=== PATIENT | male | born 1935 | race Caucasian/White ===

== ENCOUNTER 2017-10-16 15:35 | Inpatient (IN) ==
[2017-10-16] MEDS ORDERED: Ipratropium/Albuterol Neb 3 ML IH ONE (15:41)
[2017-10-16] MEDS ORDERED: methylPREDNISolone 125 MG/2 ML VIAL IVP ONE (15:49)
--- NOTE | 2017-10-16 15:55 | Emergency Department Note ---
Disposition Clinical Impression: Acute exacerbation of chronic obstructive airways disease Disposition: Admitted As Inpatient Condition: Fair Referrals: Paco Salcido DO [Primary Care Provider] - Forms: ED Satisfaction Letter Time of Disposition: 18:40 General Adult HPI - General Chief complaint: ED Shortness of Breath/Dyspnea Stated complaint: chest pain, ANDREA Source: EMS Mode of arrival: EMS Limitations: no limitations Nursing Notes Reviewed: Yes Vital Signs Reviewed: Yes - History of Present Illness HPI Narrative: Chau, 82 year old male, presents via EMS for dyspnea starting last night. PMH is significant for COPD, has rescue inhaler and on 2L O2, distant NC in 76, no PE/stroke, non-smoker. He recently had a sinusitis/URI he states 2 weeks ago for which he was given a shot of prednisone, he states he has not quite recovered from that. He endorses sweating at onset, no nausea/vomiting, exertional dyspnea but no chest discomfort. Pain Scale: 8 - Related Data Home Medications Medication Instructions Recorded Confirmed metFORMIN [Glucophage] 500 mg PO BIDWM 10/16/15 10/16/15 Albuterol Neb [Proventil Neb] 2.5 mg IH Q6H PRN 10/16/17 10/16/17 Albuterol Sulfate [Ventolin Hfa] 2 puff IH Q4H PRN 10/16/17 10/16/17 Finasteride [Proscar] 5 mg PO QPM 10/16/17 10/16/17 Fluticasone Propionate Nasal 100 mcg NS DAILY PRN 10/16/17 10/16/17 [Flonase] Lisinopril-HCTZ 10-12.5 [Prinzide 1 each PO DAILY 10/16/17 10/16/17 10-12.5] Loratadine [Claritin] 10 mg PO DAILY 10/16/17 10/16/17 Allergies Allergy/AdvReac Type Severity Reaction Status Date / Time tamsulosin [From Flomax] Allergy Hives Verified 10/16/17 18:46 ciprofloxacin [From Cipro] AdvReac Hives Verified 10/16/15 12:44 Penicillins AdvReac Rash Verified 10/16/17 15:50 Constitutional: Denies: fever Cardiovascular: Reports: palpitations, dyspnea on exertion. Denies: chest pain , edema, syncope Respiratory: Reports: dyspnea, sputum production. Denies: cough, hemoptysis, stridor Gastrointestinal: Denies: abdominal pain, nausea, vomiting, diarrhea, constipation, melena Genitourinary: Denies: dysuria Neurological: Denies: headache Psychiatric: Reports: depression. Denies: anxiety Endocrine: Reports: fatigue Hematological/Lymphatic: Denies: easy bleeding Allergic/Immunologic: Denies: facial swelling Past Medical History - Past Medical History Medical history: Reports: COPD, diabetes, hypertension, myocardial infarction - Social History Smoking Status: Never smoker Smokeless Tobacco Status: No Alcohol use: Reports: none Drug use: Reports: none Physical Exam - General Limitations: no limitations General appearance: alert, lethargic - Head Head exam: atraumatic, normocephalic - Eye Eye exam: Present: EOMI - ENT ENT exam: mucous membranes moist - Chest Chest inspection: Present: symmetric chest wall rise. Absent: tenderness - Respiratory Respiratory exam: Present: normal lung sounds bilaterally, respiratory distress - Cardiovascular Cardiovascular exam: Present: tachycardia. Absent: systolic murmur, diastolic murmur, JVD - Abdominal Exam Abdominal exam: Present: soft, Non-Tender - Neurological Exam Neurological exam: Present: alert, oriented X3 - Psychiatric Psychiatric exam: Present: normal affect, normal mood - Skin Skin exam: Present: warm. Absent: cyanosis, diaphoresis Course Course Narrative: Chau, 82M, in labored breathing on arrival, visibly in tripod position/pursed lips though conversant. He is in sinus tachycardia, saturating in low-mid 90s with 2L O2. His lung sounds are bilaterally diminished without crackles or wheeze. He has no lower extremity swelling, he is not diaphoretic, shows no evidence of nausea/vomiting. We are starting him on duoneb breathing treatment, solumedrol 125mg, cxr, ecg, trop, basic chemistries. 1545 Re-eval: ECG shows sinus tachycardia at [address] elevation or depression, no t wave abnormalities. Troponin negative. CXR shows no definitive acute process; no cardiomegaly, no vascular congestion. Patient's tachycardia persists, while this may be in response to his hypoxia followed by beta-agonism from his breathing treatment, we are ordering a d- dimer. If higher than age-adjusted threshold of 810, will proceed with CTA chest (creatinine .91) Re-eval 2: D-dimer elevation 906. CTA negative for pulmonary embolism. We are starting Azithromycin for CAP prophylaxis in setting of COPD exacerbation. Discussed patient with hospitalist who agrees to admit the patient for observation of COPD exacerbation. Patient understands plan and agrees. Vital Signs Temperature 98.1 F 10/16/17 15:37 Pulse Rate 103 10/16/17 15:37 Respiratory Rate 25 10/16/17 15:37 Blood Pressure 118/80 10/16/17 15:37 O2 Sat by Pulse Oximetry 94 10/16/17 15:37 Temperature 98.1 F 10/16/17 15:37 Pulse Rate 103 10/16/17 15:37 Respiratory Rate 25 10/16/17 15:37 Blood Pressure 118/80 10/16/17 15:37 O2 Sat by Pulse Oximetry 95 10/16/17 16:05 Oxygen Delivery Oxygen Delivery Room Air Medical Decision Making - Medical Records Medical records reviewed: Yes I reviewed the patient's medical records. - Lab Data Lab results reviewed: Yes I reviewed the patient's lab results. Result diagrams: 10/16/17 15:42 10/16/17 15:42 Lab Results 10/16/17 10/16/17 10/16/17 Range/Units 15:42 15:42 16:38 WBC 17.3 H (4.3-11.1) K/mcL RBC 5.52 H (4.19-5.50) M/mcL Hgb 16.2 (12.9-16.9) g/dL Hct 49.9 (37.5-50.1) % MCV 90.4 (83.0-100.0) fL MCH 29.3 (28.0-33.3) pg MCHC 32.5 (31.6-35.5) g/dL RDW 14.5 (11.5-14.5) % Plt Count 238 (140-400) K/mcL MPV 9.2 L (9.4-12.4) fL Immature Gran % 0.8 (0-4) % Seg Neutrophils % 93.1 % Lymphocytes % 2.8 % Monocytes % 3.1 % Eosinophils % 0.1 % Basophils % 0.1 % Neutrophils # 16.1 H (1.6-8.9) K/mcL Lymphocytes # 0.5 L (0.6-4.6) K/mcL Monocytes # 0.5 (0.0-1.3) K/mcL Eosinophils # 0.0 (0.0-0.6) K/mcL Basophils # 0.0 (0.0-0.2) K/mcL D-Dimer 906 H (0-500) ng/mLFEU Sodium 133 L (136-145) mEq/L Potassium 4.7 (3.5-5.1) mEq/L Chloride 94 L (98-107) mEq/L Carbon Dioxide 28 (23-29) mEq/L BUN 32 H (8-23) mg/dL Creatinine 0.91 (0.70-1.30) mg/dL Est GFR ( Amer) > 60 (> 60) Est GFR (Non-Af Amer) > 60 (> 60) BUN/Creatinine Ratio 35 H (6-26) Glucose 153 H (70-105) mg/dL Calculated Osmolality 286 (280-300) Calcium 9.6 (8.6-10.3) mg/dL Troponin I < 0.03 (< 0.04) ng/mL Lipase 41 (11-82) Units/L - Radiology Data Radiology results reviewed: Yes I reviewed the patient's radiology results. Chest X-Ray 10/16/17 15:51 IMPRESSION: Stable postinflammatory scarring right lung base. No definite acute pulmonary finding. D/ / Rudolph Vaughn MD / Rudolph Vaughn MD Interpreting Provider: Rudolph Vaughn MD - EKG Data EKG #1 EKG attestation: Yes I reviewed and interpreted this EKG. EKG results narrative: ECG obtained 1539. Sinus tachycardic at 120bpm. No st elevation or depression. No t wave abnormalities.
[2017-10-16 16:03] LABS: Basophils % 0.1 %; Eosinophils % 0.1 %; Hematocrit 49.9 % (37.5-50.1); Hemoglobin 16.2 g/dL (12.9-16.9); Immature Granulocytes % 0.8 % (0-4); Lymphocytes # 0.5 K/mcL (0.6-4.6); Lymphocytes % 2.8 %; Mean Corpuscular HGB Conc 32.5 g/dL (31.6-35.5); Mean Corpuscular Hemoglobin 29.3 pg (28.0-33.3); Mean Corpuscular Volume 90.4 fL (83.0-100.0); Mean Platelet Volume 9.2 fL (9.4-12.4); Monocytes # 0.5 K/mcL (0.0-1.3); Monocytes % 3.1 %; Neutrophils # 16.1 K/mcL (1.6-8.9); Platelet Count 238 K/mcL (140-400); Red Blood Count 5.52 M/mcL (4.19-5.50); Red Cell Distribution Width 14.5 % (11.5-14.5); Segmented Neutrophils % 93.1 %
[2017-10-16 16:30] LABS: BUN/Creatinine Ratio 35 (6-26); Blood Urea Nitrogen 32 mg/dL (8-23); Calcium 9.6 mg/dL (8.6-10.3); Carbon Dioxide 28 mEq/L (23-29); Chloride 94 mEq/L (98-107); Glucose 153 mg/dL (70-105); Osmolality,Calculated 286 (280-300); Potassium 4.7 mEq/L (3.5-5.1); Sodium 133 mEq/L (136-145); Troponin I < 0.03 ng/mL (< 0.04); eGFR For African Americans > 60 (> 60); eGFR For Non-African Americans > 60 (> 60)
--- NOTE | 2017-10-16 16:43 | Emergency Department Note ---
Disposition Clinical Impression: Acute exacerbation of chronic obstructive airways disease Disposition: Admitted As Inpatient Condition: Fair General Adult HPI - General Chief complaint: ED Shortness of Breath/Dyspnea Stated complaint: chest pain, ANDREA Time Seen by Provider: 10/16/17 16:27 Source: EMS Mode of arrival: EMS Limitations: no limitations - History of Present Illness Pain Scale: 8 - Related Data Home Medications Medication Instructions Recorded Confirmed metFORMIN [Glucophage] 1,000 mg PO BIDWM 10/16/15 10/16/17 Albuterol Neb [Proventil Neb] 2.5 mg IH Q6H PRN 10/16/17 10/16/17 Albuterol Sulfate [Ventolin Hfa] 2 puff IH Q4H PRN 10/16/17 10/16/17 Finasteride [Proscar] 5 mg PO QPM 10/16/17 10/16/17 Fluticasone Propionate Nasal 100 mcg NS DAILY PRN 10/16/17 10/16/17 [Flonase] Lisinopril-HCTZ 10-12.5 [Prinzide 1 each PO DAILY 10/16/17 10/16/17 10-12.5] Loratadine [Claritin] 10 mg PO DAILY 10/16/17 10/16/17 Allergies Allergy/AdvReac Type Severity Reaction Status Date / Time tamsulosin [From Flomax] Allergy Hives Verified 10/16/17 18:46 ciprofloxacin [From Cipro] AdvReac Hives Verified 10/16/15 12:44 Penicillins AdvReac Rash Verified 10/16/17 15:50 Constitutional: Denies: fever Cardiovascular: Reports: palpitations, dyspnea on exertion. Denies: chest pain , edema, syncope Respiratory: Reports: dyspnea, sputum production. Denies: cough, hemoptysis, stridor Gastrointestinal: Denies: abdominal pain, nausea, vomiting, diarrhea, constipation, melena Genitourinary: Denies: dysuria Neurological: Denies: headache Psychiatric: Reports: depression. Denies: anxiety Endocrine: Reports: fatigue Hematological/Lymphatic: Denies: easy bleeding Allergic/Immunologic: Denies: facial swelling Past Medical History - Past Medical History Medical history: Reports: COPD, diabetes, hypertension, myocardial infarction - Social History Smoking Status: Never smoker Smokeless Tobacco Status: No Alcohol use: Reports: none Drug use: Reports: none Physical Exam - General Limitations: no limitations General appearance: alert, lethargic Course Vital Signs Temperature 98.1 F 10/16/17 15:37 Pulse Rate 103 10/16/17 15:37 Respiratory Rate 25 10/16/17 15:37 Blood Pressure 118/80 10/16/17 15:37 O2 Sat by Pulse Oximetry 94 10/16/17 15:37 Temperature 97.9 F 10/17/17 03:24 Pulse Rate 108 10/17/17 03:24 Respiratory Rate 14 10/17/17 03:24 Blood Pressure 96/54 10/17/17 03:24 O2 Sat by Pulse Oximetry 94 10/17/17 03:24 Oxygen Delivery Oxygen Delivery Room Air Medical Decision Making - Lab Data Result diagrams: 10/17/17 04:05 10/17/17 04:05 Lab Results 10/16/17 10/16/17 10/16/17 Range/Units 15:42 15:42 16:38 WBC 17.3 H (4.3-11.1) K/mcL RBC 5.52 H (4.19-5.50) M/mcL Hgb 16.2 (12.9-16.9) g/dL Hct 49.9 (37.5-50.1) % MCV 90.4 (83.0-100.0) fL MCH 29.3 (28.0-33.3) pg MCHC 32.5 (31.6-35.5) g/dL RDW 14.5 (11.5-14.5) % Plt Count 238 (140-400) K/mcL MPV 9.2 L (9.4-12.4) fL Immature Gran % 0.8 (0-4) % Seg Neutrophils % 93.1 % Lymphocytes % 2.8 % Monocytes % 3.1 % Eosinophils % 0.1 % Basophils % 0.1 % Neutrophils # 16.1 H (1.6-8.9) K/mcL Lymphocytes # 0.5 L (0.6-4.6) K/mcL Monocytes # 0.5 (0.0-1.3) K/mcL Eosinophils # 0.0 (0.0-0.6) K/mcL Basophils # 0.0 (0.0-0.2) K/mcL D-Dimer 906 H (0-500) ng/mLFEU Sodium 133 L (136-145) mEq/L Potassium 4.7 (3.5-5.1) mEq/L Chloride 94 L (98-107) mEq/L Carbon Dioxide 28 (23-29) mEq/L BUN 32 H (8-23) mg/dL Creatinine 0.91 (0.70-1.30) mg/dL Est GFR ( Amer) > 60 (> 60) Est GFR (Non-Af Amer) > 60 (> 60) BUN/Creatinine Ratio 35 H (6-26) Glucose 153 H (70-105) mg/dL Calculated Osmolality 286 (280-300) Calcium 9.6 (8.6-10.3) mg/dL Troponin I < 0.03 (< 0.04) ng/mL Lipase 41 (11-82) Units/L Attestation Statement - Attestation Attestation: I examined this patient and my medical decision-making was reviewed with the Resident Physician. I agree with the documented findings, disposition and treatment plan as described except to the extent set forth below. [id number] time provided Patient arrives with dyspnea. He is tachypneic and tachycardic at the time of my exam. Chest x-ray, ECG, labs reviewed by me. I have recommended adding a d- dimer to the patient's workup and if it is positive, age-adjusted or above, we will pursue CTA of his chest.
[2017-10-16 16:58] LABS: Lipase 41 Units/L (11-82)
[2017-10-16] MEDS ORDERED: Azithromycin 500 MG in D5% in Water 250 ML IVPB ONE (18:37)
[2017-10-16] MEDS ORDERED: Dextrose Gel 15 GM/37.5 ML TUBE PO PRN ×2 (19:23)
[2017-10-16] MEDS ORDERED: *HR* Dextrose 50 % in Water (Syg) 50 ML SYRINGE IVP PRN (19:23)
[2017-10-16] MEDS ORDERED: D5% in Water 1,000 ML IVC PRN (19:23)
[2017-10-16] MEDS ORDERED: Fluticasone Propionate Nasal 50 MCG/SPRAY BOTTLE NS PRN (19:24)
[2017-10-16] MEDS ORDERED: Naloxone 0.4 MG/ML INJ IVP PRN (19:25)
[2017-10-16] MEDS ORDERED: Acetaminophen 325 MG TABLET PO PRN (19:25)
--- NOTE | 2017-10-16 19:29 | Internal Med History&Physical ---
Date of Encounter: 10/16/17 Time of Encounter: 19:26 Internal Medicine - H&P: HPI Chief complaint: shortness of breath Admitted From: Emergency Dept Plans for Post Hospital Care: Home History of present illness: Mr. Ritchie is a 82 year old male with h/o COPD on 2 L at night, DM, HTN presents with a shortness of breath that became worse last night. He has actually been dealing with respiratory symptoms (URI symptoms) since 2 weeks. Was given a steroids shot for this and put on a course of steroids but no improvement. Denies fever/chills/nausea/vomiting/headache/chest pain/abdominal pain/urinary symptoms/neurological symptoms. Came in and was in tripod position with conversational dyspnea. Was sinus tachy. Sats on 2 L O2 in the 90s saturation kohli. Work up with EKG showed sinus tachy. CXR clear. Had elevated D -dimers and CTA ruled out PE. Was given solu-medrol and azithro and nebs in ED. Past Med Surg Social Fam HX - Past Medical History Medical history: COPD, diabetes, hypertension, myocardial infarction - Social History Smoking Status: Never smoker Smokeless Tobacco Status: No Alcohol use: none Drug use: none Internal Medicine - H&P: Meds metFORMIN [Glucophage] 1,000 mg PO BIDWM 10/16/15 [History] Albuterol Neb [Proventil Neb] 2.5 mg IH Q6H PRN 10/16/17 [History] Albuterol Sulfate [Ventolin Hfa] 2 puff IH Q4H PRN 10/16/17 [History] Finasteride [Proscar] 5 mg PO QPM 10/16/17 [History] Fluticasone Propionate Nasal [Flonase] 100 mcg NS DAILY PRN 10/16/17 [History] Lisinopril-HCTZ 10-12.5 [Prinzide 10-12.5] 1 each PO DAILY 10/16/17 [History] Loratadine [Claritin] 10 mg PO DAILY 10/16/17 [History] 3 Allergy/AdvReac Type Severity Reaction Status Date / Time tamsulosin [From Flomax] Allergy Hives Verified 10/16/17 18:46 ciprofloxacin [From Cipro] AdvReac Hives Verified 10/16/15 12:44 Penicillins AdvReac Rash Verified 10/16/17 15:50 All Systems PM: A 10-system review of systems was performed and is negative for pertinent findings except as documented above in the HPI. Review of systems: All systems reviewed are negative except as mentioned above. - Constitutional Vitals: Temp Pulse Resp BP Pulse Ox 98.1 F 103 25 118/80 95 10/16/17 15:37 10/16/17 15:37 10/16/17 15:37 10/16/17 15:37 10/16/17 16:05 Exam: GEN: NAD HEENT: AT, NC, No cyanosis, oral mucosa is moist, No JVD Lymphatics: No lymphadenoapthy Eyes: Extrocular muscles intact, anicteric CVS:RRR. S1, S2, No m/r/g RESP: Expiratory wheezes posteriorly ABD: Soft, NT, ND, +BS EXT: No edema, No rashes, 2+ DP NEURO: Nonfocal, CN II-XII intact, No focal motor or sensory deficits Psych: Cooperative, Not anxious or depressed Internal Med - H&P Results - Labs CBC & Chem 7: 10/16/17 15:42 10/16/17 15:42 Labs: Short CBC 10/16/17 Range/Units 15:42 WBC 17.3 H (4.3-11.1) K/mcL Hgb 16.2 (12.9-16.9) g/dL Hct 49.9 (37.5-50.1) % Plt Count 238 (140-400) K/mcL Neutrophils # 16.1 H (1.6-8.9) K/mcL BMP 10/16/17 15:42 Sodium 133 L Potassium 4.7 Chloride 94 L Carbon Dioxide 28 BUN 32 H Creatinine 0.91 Glucose 153 H Calcium 9.6 Cardiac Enzymes 10/16/17 Range/Units 15:42 Troponin I < 0.03 (< 0.04) ng/mL - Impressions ITS Impressions Chest X-Ray 10/16/17 15:51 IMPRESSION: Stable postinflammatory scarring right lung base. No definite acute pulmonary finding. D/ / Rudolph Vaughn MD / Rudolph Vaughn MD Interpreting Provider: Rudolph Vaughn MD Chest CTA 10/16/17 17:04 IMPRESSION: 1. No evidence of pulmonary embolic disease. 2. No acute pulmonary findings. 3. Atherosclerotic calcification in the aorta and coronary circulation. 4. Hepatic steatosis. 1.7 cm left hepatic lesion, grossly stable. No follow-up imaging indicated. D/ / Jenaro Fleming MD / Jenaro Fleming MD Interpreting Provider: Jenaro Fleming MD - Assessment and plan (1) Acute exacerbation of chronic obstructive airways disease Current Visit: Yes Status: Acute Assessment and plan: Will continue IV solu-medrol. Nebs. O2 support. Zithromax for its anti- inflammatory effects. Resp panel. (2) Elevated d-dimer Current Visit: Yes Status: Acute Assessment and plan: PE ruled out. check LE dopplers. (3) Diabetes mellitus Current Visit: Yes Status: Acute Assessment and plan: Will use insulin sliding scale. [employer]uCheks Qualifiers: Diabetes mellitus type: type 2 Diabetes mellitus skilled nursing insulin use: without termite control service representative use Diabetes mellitus complication status: without complication Qualified Code(s): E11.9 - Type 2 diabetes mellitus without complications (4) Hypertension Current Visit: Yes Status: Acute Assessment and plan: Resume home anti-hypertensives Qualifiers: Hypertension type: essential hypertension Qualified Code(s): I10 - Essential (primary) hypertension (5) DVT prophylaxis Current Visit: Yes Status: Acute Assessment and plan: heparin SQ - Time Spent With Patient Total time spent is greater than 50% in coordination of care (as documented) at patient's floor/unit and/or counseling patient:
[2017-10-16] MEDS ORDERED: Azithromycin 500 MG in D5% in Water 250 ML IVPB SCH (20:00)
[2017-10-16] MEDS: Insulin LISPRO 300 UNITS/3 ML VIAL SQ SCH (22:29)
[2017-10-16] MEDS: *HR* Heparin 5,000 UNIT/ML VIAL SQ SCH (22:29)
[2017-10-16] MEDS: methylPREDNISolone 125 MG/2 ML VIAL IVP SCH (22:30)
[2017-10-16] MEDS: Ipratropium/Albuterol Neb 3 ML IH SCH (22:55)
[2017-10-17] MEDS: Ipratropium/Albuterol Neb 3 ML IH SCH ×4 (03:23→22:16)
[2017-10-17 04:44] LABS: Basophils % 0.1 %; Hematocrit 42.5 % (37.5-50.1); Immature Granulocytes % 0.9 % (0-4); Lymphocytes # 0.3 K/mcL (0.6-4.6); Lymphocytes % 3.9 %; Mean Corpuscular HGB Conc 32.5 g/dL (31.6-35.5); Mean Corpuscular Hemoglobin 29.3 pg (28.0-33.3); Mean Corpuscular Volume 90.2 fL (83.0-100.0); Mean Platelet Volume 9.3 fL (9.4-12.4); Monocytes # 0.1 K/mcL (0.0-1.3); Monocytes % 0.6 %; Platelet Count 198 K/mcL (140-400); Red Blood Count 4.71 M/mcL (4.19-5.50); Red Cell Distribution Width 14.2 % (11.5-14.5); Segmented Neutrophils % 94.5 %
[2017-10-17 04:52] LABS: Hemoglobin 13.8 g/dL (12.9-16.9)
[2017-10-17 05:05] LABS: BUN/Creatinine Ratio 36 (6-26); Blood Urea Nitrogen 37 mg/dL (8-23); Calcium 8.8 mg/dL (8.6-10.3); Carbon Dioxide 23 mEq/L (23-29); Chloride 96 mEq/L (98-107); Glucose 372 mg/dL (70-105); Osmolality,Calculated 296 (280-300); Potassium 4.9 mEq/L (3.5-5.1); Sodium 131 mEq/L (136-145); eGFR For African Americans > 60 (> 60); eGFR For Non-African Americans > 60 (> 60)
[2017-10-17] MEDS: *HR* Heparin 5,000 UNIT/ML VIAL SQ SCH ×3 (06:25→20:35)
[2017-10-17] MEDS: methylPREDNISolone 125 MG/2 ML VIAL IVP SCH ×2 (07:28→17:11)
[2017-10-17] MEDS: Loratadine 10 MG TABLET PO SCH (07:28)
[2017-10-17] MEDS: Insulin LISPRO 300 UNITS/3 ML VIAL SQ SCH ×4 (08:17→17:13)
--- NOTE | 2017-10-17 15:21 | Internal Med Progress Note ---
Date of Encounter: 10/17/17 Time of Encounter: 15:19 - Assessment and plan (1) Acute exacerbation of chronic obstructive airways disease Current Visit: Yes Status: Acute Assessment and plan: continue IV solu-medrol, Nebs, O2 support. Zithromax for its anti-inflammatory effects. Resp panel ordered. (2) Diabetes mellitus Current Visit: Yes Status: Acute Assessment and plan: Hold metformin and use insulin sliding scale with [employer]uCheks Qualifiers: Diabetes mellitus type: type 2 Diabetes mellitus mcfp insulin use: without mcfp use Diabetes mellitus complication status: without complication Qualified Code(s): E11.9 - Type 2 diabetes mellitus without complications (3) Hypertension Current Visit: Yes Status: Acute Assessment and plan: Resume home medications, stable Qualifiers: Hypertension type: essential hypertension Qualified Code(s): I10 - Essential (primary) hypertension (4) DVT prophylaxis Current Visit: Yes Status: Acute Assessment and plan: heparin subcutaneous (5) Elevated d-dimer Current Visit: Yes Status: Acute Assessment and plan: PE ruled out on CTA, LE dopplers with no DVT. (6) Liver lesion, left lobe Current Visit: Yes Status: Acute Assessment and plan: Incidentally 1.7 cm left hepatic lesion grossly stable found on CTA of the chest. Follow LFTs Also positive for hepatic steatosis - Time Spent With Patient Total time spent is greater than 50% in coordination of care (as documented) at patient's floor/unit and/or counseling patient: - Subjective Interval history: Patient sitting up in the bed on oxygen at 3 L nasal cannula. He is a little dyspneic on exertion of speech. He feels his breathing is much better since he came in. Discussed findings of left hepatic liver lesion. Patient has no recollection of ever being diagnosed with any liver problems or concerns. He does have a history of alpha-1 liver disease in his family with a sister and other relatives diagnosed with that in the past. Family members at the bedside and discussed plan of care and they neither one have any questions. Denies chest pain, fevers, chills, abdominal pain, headache, or dizziness. Positive for some sweats. Also reports cough for some yellowish sputum that has been ongoing for many weeks. He has been treated for bronchitis and sinusitis as an outpatient over the last several months. - Constitutional Vitals: Temp Pulse Resp BP Pulse Ox 97.3 F L 117 16 135/61 93 04/07/18 11:43 10/17/17 11:43 10/17/17 11:43 10/17/17 11:43 10/17/17 11:43 General appearance: Present: cooperative, mild distress, A&O X 3, pleasant, obese, answers questions appropriately - Head Head exam: Present: atraumatic, normocephalic - Eye Eye exam: Present: PERRL, conjuntiva pink, sclera anicteric Pupils: Present: PERRL - Neck Neck exam general surgery: Present: supple, trachea midline. Absent: lymphadenopathy - Respiratory Respiratory exam: Present: decreased breath sounds, prolonged expiratory phase, wheezes. Absent: accessory muscle use, rales, rhonchi - Cardiovascular Cardiovascular exam: Present: RRR, +S1, +S2. Absent: diastolic murmur, gallop, rubs, systolic murmur - GI/Abdominal GI/Abdominal exam: Present: normal bowel sounds, soft, no peritoneal signs. Absent: distended, tenderness - Extremities Exam Extremities exam: Present: warm, radial pulses palpable and symmetrical. Absent : calf tenderness, cyanotic, pedal edema - Neurological Exam Neurological exam: Present: alert, CN II-XII intact, normal gait, oriented X3, no focal deficits. Absent: pronater drift, facial droop, speech deficit - Skin Skin exam: Present: dry, intact, normal color, warm Internal Medicine: Result - Labs CBC & Chem 7: 10/17/17 04:05 10/17/17 04:05 Labs: Short CBC 10/17/17 Range/Units 04:05 WBC 8.5 D (4.3-11.1) K/mcL Hgb 13.8 D (12.9-16.9) g/dL Hct 42.5 (37.5-50.1) % Plt Count 198 (140-400) K/mcL Neutrophils # 8.0 (1.6-8.9) K/mcL BMP 10/17/17 04:05 Sodium 131 L Potassium 4.9 Chloride 96 L Carbon Dioxide 23 BUN 37 H Creatinine 1.02 Glucose 372 H Calcium 8.8 - ABG Interpretation ABG results: PT/INR, D-dimer D-Dimer 906 ng/mLFEU (0-500) H 10/16/17 16:38 Consult Discharge Plan - Plan Referrals: Paco Salcido DO [Primary Care Provider] -
[2017-10-17] MEDS ORDERED: Simethicone 80 MG TAB.CHEW PO PRN (16:56)
[2017-10-17] MEDS: Azithromycin 500 MG in D5% in Water 250 ML IVPB SCH (17:12)
[2017-10-17] MEDS: Finasteride 5 MG TABLET PO SCH (17:12)
[2017-10-17 18:40] LABS: Adenovirus Not Detected (Not Detect); Coronavirus 229E Not Detected (Not Detect); Coronavirus HKU1 Not Detected (Not Detect); Coronavirus NL63 Not Detected (Not Detect); Coronavirus OC43 Not Detected (Not Detect); Human Metapneumovirus Not Detected (Not Detect); Human Rhinovirus/Enterovirus Not Detected (Not Detect); Influenza A Subtype 2009 H1 Not Detected (Not Detect)
[2017-10-17 18:41] LABS: Bordetella Pertussis Not Detected (Not Detect); Chlamydophila pneumoniae Not Detected (Not Detect); Influenza A Untypeable Not Detected (Not Detect); Influenza B Not Detected (Not Detect); Mycoplasma pneumoniae Not Detected (Not Detect); Parainfluenza Virus 1 Not Detected (Not Detect); Parainfluenza Virus 2 Not Detected (Not Detect); Parainfluenza Virus 3 Not Detected (Not Detect); Parainfluenza Virus 4 Not Detected (Not Detect); Respiratory Syncytial Virus Not Detected (Not Detect)
[2017-10-17] MEDS ORDERED: Mag Hydrox/Al Hydrox/Simeth 30 ML UDC PO PRN (20:33)
[2017-10-18] MEDS: methylPREDNISolone 125 MG/2 ML VIAL IVP SCH ×3 (00:15→17:00)
[2017-10-18] MEDS: Ipratropium/Albuterol Neb 3 ML IH SCH (03:21)
[2017-10-18 05:06] LABS: Hematocrit 42.1 % (37.5-50.1); Hemoglobin 13.9 g/dL (12.9-16.9); Mean Corpuscular Hemoglobin 29.3 pg (28.0-33.3); Mean Corpuscular Volume 88.6 fL (83.0-100.0); Mean Platelet Volume 9.8 fL (9.4-12.4); Platelet Count 246 K/mcL (140-400); Red Blood Count 4.75 M/mcL (4.19-5.50); Red Cell Distribution Width 14.6 % (11.5-14.5)
[2017-10-18 05:13] LABS: Alanine Aminotransferase 64 Units/L (7-52); Albumin/Globulin Ratio 1.5 (1.1-2.2); Alkaline Phosphatase 63 Units/L (34-104); Aspartate Amino Transferase 38 Units/L (13-39); BUN/Creatinine Ratio 53 (6-26); Bilirubin,Direct 0.1 mg/dL (0.0-0.2); Bilirubin,Indirect 0.4 mg/dL (0.0-1.2); Bilirubin,Total 0.5 mg/dL (0.3-1.0); Blood Urea Nitrogen 50 mg/dL (8-23); Calcium 8.2 mg/dL (8.6-10.3); Carbon Dioxide 19 mEq/L (23-29); Chloride 96 mEq/L (98-107); Globulin 2.6 g/dL (2.4-3.5); Glucose 429 mg/dL (70-105); Osmolality,Calculated 298 (280-300); Potassium 4.2 mEq/L (3.5-5.1); Sodium 128 mEq/L (136-145); Total Protein 6.6 g/dL (6.4-8.9); eGFR For African Americans > 60 (> 60); eGFR For Non-African Americans > 60 (> 60)
[2017-10-18] MEDS: *HR* Heparin 5,000 UNIT/ML VIAL SQ SCH ×3 (05:35→22:45)
[2017-10-18] MEDS ORDERED: *HR* Dextrose 50 % in Water (Syg) 50 ML SYRINGE IVP PRN ×2 (07:44→07:48)
[2017-10-18] MEDS ORDERED: D5% in Water 1,000 ML IVC PRN ×2 (07:44→07:48)
[2017-10-18] MEDS ORDERED: Dextrose Gel 15 GM/37.5 ML TUBE PO PRN ×2 (07:48)
[2017-10-18] MEDS: Loratadine 10 MG TABLET PO SCH (08:15)
[2017-10-18] MEDS: Insulin LISPRO 300 UNITS/3 ML VIAL SQ SCH ×4 (08:16→17:00)
[2017-10-18] MEDS: amLODIPine 5 MG TABLET PO SCH (09:04)
[2017-10-18] MEDS: Insulin DETEMIR 100 UNIT/ML X5UNITS SQ SCH ×2 (09:05→21:37)
[2017-10-18] MEDS: Levalbuterol Neb 1.25 MG/3 ML IH SCH ×3 (09:57→21:45)
--- NOTE | 2017-10-18 12:17 | Internal Med Progress Note ---
Date of Encounter: 10/18/17 Time of Encounter: 12:13 - Assessment and plan (1) Acute exacerbation of chronic obstructive airways disease Current Visit: Yes Status: Acute Assessment and plan: continue IV solu-medrol, change to xopenex nebulizers, O2 support. Zithromax for its anti-inflammatory effects. Resp panel negative. (2) Diabetes mellitus Current Visit: Yes Status: Acute Assessment and plan: Hold metformin increase insulin sliding scale with AccuCheks add longacting insulin Qualifiers: Diabetes mellitus type: type 2 Diabetes mellitus fci insulin use: without intermediate teacher use Diabetes mellitus complication status: without complication Qualified Code(s): E11.9 - Type 2 diabetes mellitus without complications (3) Hypertension Current Visit: Yes Status: Acute Assessment and plan: stable blood pressure stopped HCTZ/lisinopril secondary to renal function, changed to norvasc Qualifiers: Hypertension type: essential hypertension Qualified Code(s): I10 - Essential (primary) hypertension (4) DVT prophylaxis Current Visit: Yes Status: Acute Assessment and plan: heparin subcu (5) Elevated d-dimer Current Visit: Yes Status: Acute Assessment and plan: No pulmonary embolism on CTA, LE dopplers with no DVT. (6) Liver lesion, left lobe Current Visit: Yes Status: Acute Assessment and plan: Incidentally 1.7 cm left hepatic lesion grossly stable found on CTA of the chest. Follow LFTs Also positive for hepatic steatosis GI consult in am Family concerned regarding familial liver disorder (7) Leukocytosis Current Visit: Yes Status: Acute Assessment and plan: Likely secondary to steroids Qualifiers: Leukocytosis type: other Qualified Code(s): D72.828 - Other elevated white blood cell count - Time Spent With Patient Total time spent is greater than 50% in coordination of care (as documented) at patient's floor/unit and/or counseling patient: - Subjective Interval history: Patient sitting up in the bed on oxygen at 3 L nasal cannula. He is a little bit tachycardic after his respiratory treatments so discussed changing his neck utilize her medication. Also discuss findings of his lab work. Blood sugars are elevated likely secondary to the steroids and we have added a long-acting insulin to his regime as well as increased his sliding scale and he is in agreement with that plan. Explained BUN is elevated 7 adjusted his diuretics. He has noticed complaints of chest pain, fevers, chills, abdominal pain or headache. He is slightly constipated and has been sweaty at times. Family is at the bedside and all their questions were answered. - Constitutional Vitals: Temp Pulse Resp BP Pulse Ox 97.4 F L 118 18 116/66 97 10/18/17 12:01 10/18/17 12:01 10/18/17 12:01 10/18/17 12:01 10/18/17 12:01 General appearance: Present: cooperative, mild distress, A&O X 3, pleasant, obese, answers questions appropriately - Head Head exam: Present: atraumatic, normocephalic - Eye Eye exam: Present: PERRL, conjuntiva pink, sclera anicteric Pupils: Present: PERRL - Neck Neck exam general surgery: Present: supple, trachea midline. Absent: lymphadenopathy - Respiratory Respiratory exam: Present: decreased breath sounds, prolonged expiratory phase, wheezes. Absent: accessory muscle use, rales, rhonchi - Cardiovascular Cardiovascular exam: Present: +S1, +S2, tachycardia. Absent: diastolic murmur, gallop, rubs, systolic murmur - GI/Abdominal GI/Abdominal exam: Present: firm, normal bowel sounds, no peritoneal signs. Absent: distended, guarding, tenderness - Extremities Exam Extremities exam: Present: warm, radial pulses palpable and symmetrical. Absent : calf tenderness, cyanotic, pedal edema - Neurological Exam Neurological exam: Present: alert, CN II-XII intact, oriented X3, no focal deficits. Absent: pronater drift, facial droop, speech deficit - Skin Skin exam: Present: diaphoretic, intact, normal color, warm Internal Medicine: Result - Labs CBC & Chem 7: 10/18/17 04:31 10/18/17 04:31 Labs: Short CBC 10/18/17 Range/Units 04:31 WBC 22.8 H D (4.3-11.1) K/mcL Hgb 13.9 (12.9-16.9) g/dL Hct 42.1 (37.5-50.1) % Plt Count 246 (140-400) K/mcL BMP 10/18/17 04:31 Sodium 128 L Potassium 4.2 Chloride 96 L Carbon Dioxide 19 L BUN 50 H Creatinine 0.95 Glucose 429 H Calcium 8.2 L Liver Function 10/18/17 Range/Units 04:31 Total Bilirubin 0.5 (0.3-1.0) mg/dL Direct Bilirubin 0.1 (0.0-0.2) mg/dL AST 38 (13-39) Units/L ALT 64 H (7-52) Units/L Alkaline Phosphatase 63 (34-104) Units/L Albumin 4.0 (3.5-5.7) g/dL - ABG Interpretation ABG results: PT/INR, D-dimer D-Dimer 906 ng/mLFEU (0-500) H 10/16/17 16:38 Consult Discharge Plan - Plan Referrals: Paco Salcido DO [Primary Care Provider] -
[2017-10-18] MEDS: Finasteride 5 MG TABLET PO SCH (17:01)
[2017-10-18] MEDS: Azithromycin 500 MG in D5% in Water 250 ML IVPB SCH (17:01)
[2017-10-18] MEDS ORDERED: Insulin LISPRO 300 UNITS/3 ML VIAL SQ SCH (21:00)
[2017-10-19 01:49] LABS: BUN/Creatinine Ratio 60 (6-26); Blood Urea Nitrogen 53 mg/dL (8-23); Calcium 8.6 mg/dL (8.6-10.3); Carbon Dioxide 25 mEq/L (23-29); Chloride 94 mEq/L (98-107); Glucose 360 mg/dL (70-105); Osmolality,Calculated 301 (280-300); Potassium 4.1 mEq/L (3.5-5.1); Sodium 131 mEq/L (136-145); eGFR For African Americans > 60 (> 60); eGFR For Non-African Americans > 60 (> 60)
[2017-10-19] MEDS: Levalbuterol Neb 1.25 MG/3 ML IH SCH ×2 (04:02→09:40)
[2017-10-19 04:18] LABS: Hemoglobin 13.1 g/dL (12.9-16.9); Mean Corpuscular HGB Conc 32.8 g/dL (31.6-35.5); Mean Corpuscular Volume 88.5 fL (83.0-100.0); Mean Platelet Volume 10.1 fL (9.4-12.4); Platelet Count 234 K/mcL (140-400); Red Blood Count 4.52 M/mcL (4.19-5.50); Red Cell Distribution Width 14.5 % (11.5-14.5)
[2017-10-19] MEDS: *HR* Heparin 5,000 UNIT/ML VIAL SQ SCH ×2 (05:49→13:39)
[2017-10-19] MEDS: Loratadine 10 MG TABLET PO SCH (07:59)
[2017-10-19] MEDS: methylPREDNISolone 125 MG/2 ML VIAL IVP SCH ×2 (07:59)
[2017-10-19] MEDS: amLODIPine 5 MG TABLET PO SCH (07:59)
[2017-10-19] MEDS: Insulin LISPRO 300 UNITS/3 ML VIAL SQ SCH (07:59)
[2017-10-19] MEDS: Insulin DETEMIR 100 UNIT/ML X5UNITS SQ SCH (08:23)
[2017-10-19] MEDS ORDERED: Insulin LISPRO 300 UNITS/3 ML VIAL SQ SCH ×2 (09:15)
[2017-10-19 11:04] VITALS: BP 125/68
--- NOTE | 2017-10-19 13:16 | Discharge Summary ---
- NOTES TO OUTPATIENT PROVIDER Notes to Outpatient Provider: Follow-up with primary care physician in 5-7 days. Follow-up with pulmonary service as directed Orders not resulted at time of discharge: Pending orders 10/17/17 15:33 Sputum Culture [Culture,Sputum with Gram Stain] [RM] Routine 10/19/17 09:40 [id number] Routine 10/19/17 11:40 AFP Tumor Marker Non- Routine KIESHA IgG ESTEBAN rflx IFA Routine Ceruloplasmin Routine F-Actin IgG Reflex Sm Muscle Routine Ferritin Routine Hepatic Panel Routine Hepatitis Prof.(Routine A,B,C) Routine MPO/PR3 (ANCA) Antibodies Routine Mitochondrial M2 Antibody, IgG Routine Date of Encounter: 10/19/17 Time of Encounter: 13:16 - Discharge Diagnosis (1) Acute exacerbation of chronic obstructive airways disease Priority: Primary Status: Acute (2) Diabetes mellitus Priority: Primary Status: Chronic Qualifiers: Diabetes mellitus type: type 2 Diabetes mellitus lathe operator insulin use: without lathe operator use Diabetes mellitus complication status: without complication Qualified Code(s): E11.9 - Type 2 diabetes mellitus without complications (3) Hypertension Priority: Primary Status: Chronic Qualifiers: Hypertension type: essential hypertension Qualified Code(s): I10 - Essential (primary) hypertension (4) Elevated d-dimer Priority: Primary Status: Resolved (5) Liver lesion, left lobe Priority: Primary Status: Chronic (6) Leukocytosis Priority: Primary Status: Resolved Comments: secondary to steroids and trending down Qualifiers: Leukocytosis type: other Qualified Code(s): D72.828 - Other elevated white blood cell count Hospital course: Mr. Ritchie is a 82 year old male with a history of COPD on 2 L at bedtime at home, diabetes mellitus type 2, and hypertension presented with shortness of breath that became worse overnight. He has been dealing with respiratory symptoms for 2 weeks. He was given a steroid shot put on steroids but no improvement. He had no fevers chills nausea vomiting headache chest pain abdominal pain or urinary symptoms but was very dyspneic on exertion and conversation. EKG revealed a sinus tach, chest x-ray was clear. He had elevated d-dimer but CTA was negative for PE. He was placed on azithromycin duo nebs and Solu-Medrol. Today he felt like he was back to his baseline. He will be discharged home and self care. He will be sent home on a prednisone taper and a Z-Maco. His HCTZ lisinopril was stopped secondary to poor renal function and he was placed on Norvasc. He will be discharged on Norvasc. Liver lesion was noted on CT scan with no elevation in LFTs. GI was followed and will follow-up as an outpatient. Leukocytosis resolved was elevated secondary to steroids. Will follow-up outpatient with pulmonology for further evaluation. He will resume his current diabetes medication regime. All questions were answered. Discharge discussed with: patient, family, nurse, social work - Time Spent with Patient Total time spent providing and/or coordinating discharge services: Less than 30 minutes - Discharge Medications Prescriptions: amLODIPine [Norvasc] 10 mg PO DAILY 30 Days #60 tablet Azithromycin [Azithromycin 6-Tab Pack] 250 mg PO PER PKG DI #6 tab predniSONE [PredniSONE] 10 mg PO DAILY #30 tablet Home Medications: metFORMIN [Glucophage] 1,000 mg PO BIDWM 10/16/15 [History] Albuterol Sulfate [Ventolin Hfa] 2 puff IH Q4H PRN 10/16/17 [History] Finasteride [Proscar] 5 mg PO QPM 10/16/17 [History] Fluticasone Propionate Nasal [Flonase] 100 mcg NS DAILY PRN 10/16/17 [History] Loratadine [Claritin] 10 mg PO DAILY 10/16/17 [History] Albuterol Neb [Proventil Neb] 2.5 mg IH Q6H 30 Days #120 10/19/17 [Rx] Azithromycin [Azithromycin 6-Tab Pack] 250 mg PO PER PKG DI #6 tab 10/19/17 [Rx] amLODIPine [Norvasc] 10 mg PO DAILY 30 Days #60 tablet 10/19/17 [Rx] predniSONE [PredniSONE] 10 mg PO DAILY #30 tablet 10/19/17 [Rx] Allergies/Adverse Reactions: 3 Allergy/AdvReac Type Severity Reaction Status Date / Time tamsulosin [From Flomax] Allergy Hives Verified 10/16/17 18:46 ciprofloxacin [From Cipro] AdvReac Hives Verified 10/16/15 12:44 Penicillins AdvReac Rash Verified 10/16/17 15:50 Date of admission: 10/16/17 20:16 Primary care physician: Paco Salcido Consults: 10/19/17 07:51 Consult to Gastroenterology [CONS] Routine Consulting Provider: Gastroenterology Shauna Reason for Consult: liver lesion Time Notified: 07:51 Call Completed: Yes Discharging clinician: Soraida Saenz Anticipated date of discharge: 10/19/17 - Constitutional Vitals: Temp Pulse Resp BP Pulse Ox 97.5 F L 119 14 125/68 94 10/19/17 11:03 10/19/17 11:03 10/19/17 11:03 10/19/17 11:03 10/19/17 11:03 General appearance: Present: cooperative, mild distress, A&O X 3, pleasant, obese, answers questions appropriately - Head Head exam: Present: atraumatic, normocephalic - Eye Eye exam: Present: PERRL, conjuntiva pink, sclera anicteric Pupils: Present: PERRL - Neck Neck exam general surgery: Present: supple, trachea midline. Absent: lymphadenopathy - Respiratory Respiratory exam: Present: decreased breath sounds, prolonged expiratory phase. Absent: accessory muscle use, rales, rhonchi, wheezes - Cardiovascular Cardiovascular exam: Present: RRR, +S1, +S2. Absent: diastolic murmur, gallop, rubs, systolic murmur - GI/Abdominal GI/Abdominal exam: Present: firm, normal bowel sounds, no peritoneal signs. Absent: distended, tenderness Additional comments: Protuberant abdomen - Extremities Exam Extremities exam: Present: warm, radial pulses palpable and symmetrical. Absent : calf tenderness, cyanotic, pedal edema - Neurological Exam Neurological exam: Present: alert, CN II-XII intact, normal gait, oriented X3, no focal deficits. Absent: pronater drift, facial droop, speech deficit - Skin Skin exam: Present: dry, intact, normal color, warm - Patient Status Disposition: Home, Self-Care Condition: Fair Functional capacity at discharge: independent ambulation Overall status at discharge: patient is progressing back to baseline - Discharge Instructions Instructions: Prednisone (By mouth), Azithromycin (By mouth), Amlodipine (By mouth) Follow Up With: Paco Salcido DO [Primary Care Provider] - 10/27/17 1:00 pm (This appointment will be with Adelita Rizo CNP. ) - Diet and Activity Activity: increase activity as tolerated Diet: advance to your usual diet, diabetic diet, low fat, low cholesterol, low salt diet
[2017-10-19 13:41] LABS: Hepatitis A Antibody IgM Nonreactive (Nonreactive); Hepatitis B Core IgM Nonreactive (Nonreactive); Hepatitis B Surface Antigen Nonreactive (Nonreactive); Hepatitis C Virus Antibody Nonreactive (Nonreactive)
[2017-10-19 13:59] LABS: Albumin 4.2 g/dL (3.5-5.7); Albumin/Globulin Ratio 1.9 (1.1-2.2); Bilirubin,Direct 0.1 mg/dL (0.0-0.2); Bilirubin,Indirect 0.4 mg/dL (0.0-1.2); Bilirubin,Total 0.5 mg/dL (0.3-1.0); Globulin 2.2 g/dL (2.4-3.5); Total Protein 6.4 g/dL (6.4-8.9)
--- NOTE | 2017-10-19 14:34 | Gastroenterology Consult Note ---
Date of Encounter: 10/19/17 Time of Encounter: 12:05 - Assessment and plan (1) Liver lesion, left lobe Status: Chronic Assessment and plan: Liver lesions date back to 2014 and are consistent with cysts. CT Chest 05/23/2015 with hepatic steatosis with 2.1 cm hypodense lesion in left hepatic lobe. MRI abdomen 06/11/2015 with several lesions likely representing cysts and severe hepatic steatosis. CT Chest 04/29/2017 with chronic diffuse hepatic steatosis with stable 1.8 cm low-density left hepatic lobe lesion c/w benign cyst. Chest CTA 10/16/2017 shows hepatic steatosis, with 1.7 cm left hepatic lesion. (2) Hepatic steatosis Status: Acute Assessment and plan: Complete liver work up and follow up in GI office in 4-6 weeks. - Time Spent With Patient Total time spent is greater than 50% in coordination of care (as documented) at patient's floor/unit and/or counseling patient: GI History of Present Illness - Data of Consult Patient: new to practice Consult date: 10/19/17 Requesting Physician: Natali Trejo CNP - Consult Narrative Reason for consult: Liver lesion History of present illness: Mr. Ritchie is a 82 year old male with PMHx of COPD, DM, HTN, LA presented to the ED with worsening shortness of breath. He denied fever, chills, abdominal pain, nausea, vomiting, constipation, diarrhea, melena, or hematochezia. D- Dimer was elevated and CTA ruled out PE, but did show hepatic steatosis, with 1.7 cm left hepatic lesion. We were consulted to evaluate the liver lesion. A 2.1 cm liver lesion was noted on chest CT on 05/23/2015. MRI abdomen 06/11/2015 with several lesions likely representing cysts. He denies fever, chills, chest pain, abdominal pain, nausea, vomiting, melena, or hematochezia. Procedures: Colonoscopy 01/16/2011 Dr. Salcido: Diverticulosis, four hyperplastic polyps. NSAIDs: None Anticoagulation: None Past Med Surg Social Fam HX - Past Medical History Medical history: COPD, diabetes, hypertension, myocardial infarction - Social History Smoking Status: Never smoker Smokeless Tobacco Status: No Alcohol use: none Drug use: none - Family History Father Age at : 86 Cause of : LA Hx Family Cardiac Disorders: Yes (LA) Hx Family Respiratory Disorders: No Hx Family Cancer: No Hx Family GI Disorders: No Hx Family Genitourinary Disorders: No Hx Family Endocrine Disorder: No Hx Family Musculoskeletal Disorders: No Hx Family Neuromuscular Disorders: No Hx Family Neurologic Disorders: Yes (Alzheimers) Hx Family HEENT Disorders: No Hx Family Autoimmune Disorders: No Hx Family Reproductive Disorders: No Hx Family Psychosocial Disorders: No Hx Family Medical Disorders: No Mother Hx Family Cardiac Disorders: Yes (CHF) Hx Family Respiratory Disorders: Yes (Asthma) Hx Family Cancer: No Hx Family GI Disorders: No Hx Family Genitourinary Disorders: No Hx Family Endocrine Disorder: Yes (DM) Hx Family Musculoskeletal Disorders: No Hx Family Neuromuscular Disorders: No Hx Family Neurologic Disorders: No Hx Family HEENT Disorders: No Hx Family Autoimmune Disorders: No Hx Family Reproductive Disorders: No Hx Family Psychosocial Disorders: No Hx Family Medical Disorders: No - Gastrointestinal Gastrointestinal: Present: as per HPI - Constitutional Constitutional: as per HPI - EENT Eyes: as per HPI Ears: Present: as per HPI Nose, mouth and throat: Present: as per HPI - Cardiovascular Cardiovascular ROS: Present: as per HPI - Respiratory Respiratory IM: Present: as per HPI - Genitourinary Genitourinary: Absent: change in color, Urinary frequency - Neurological ROS Neurological GI: Present: as per HPI - Hematologic/Lymphatic Hematologic/Lymphatic pediatric: Present: as per HPI - Musculoskeletal Musculoskeletal ROS GI: Present: as per HPI - Integumentary Integumentary GI: Present: as per HPI - Psychiatric ROS Psychiatric GI: Present: as per HPI - Endocrine Endocrine IM: Present: as per HPI - Constitutional Vitals: Temp Pulse Resp BP Pulse Ox 97.5 F L 119 14 125/68 94 10/19/17 11:03 10/19/17 11:03 10/19/17 11:03 10/19/17 11:03 10/19/17 11:03 General appearance: Present: cooperative, A&O X 3, no acute distress, answers questions appropriately - Head Head exam: Present: atraumatic, normocephalic - Eye Eye exam: Present: normal appearance, sclera anicteric - ENT ENT exam: Present: mucous membranes moist - Neck Neck exam general surgery: Present: normal inspection, trachea midline - Respiratory Respiratory exam: Present: decreased breath sounds, CTAB. Absent: rales, rhonchi - Cardiovascular Cardiovascular exam: Present: RRR, +S1, +S2 - GI/Abdominal GI/Abdominal exam: Present: soft, no peritoneal signs. Absent: distended, firm , guarding, tenderness - Rectal Rectal exam: Present: deferred - Extremities Exam Extremities exam: Present: warm - Neurological Exam Neurological exam: Present: no focal deficits - Psychiatric Psychiatric exam: Present: normal affect, normal mood - Skin Skin exam: Present: dry, intact, normal color, warm Results - Labs CBC & Chem 7: 10/19/17 01:12 10/19/17 01:12 Labs: Last Result Calcium 8.6 mg/dL (8.6-10.3) 10/19/17 01:12 Ferritin 590 ng/ml (20-250) H 10/19/17 11:40 Troponin I < 0.03 ng/mL (< 0.04) 10/16/17 15:42 Entire Visit Hgb 13.1 g/dL (12.9-16.9) 10/19/17 01:12 Hct 40.0 % (37.5-50.1) 10/19/17 01:12 Ferritin 590 ng/ml (20-250) H 10/19/17 11:40 Total Bilirubin 0.5 mg/dL (0.3-1.0) 10/19/17 11:40 AST 26 Units/L (13-39) 10/19/17 11:40 ALT 69 Units/L (7-52) H 10/19/17 11:40 Lipase 41 Units/L (11-82) 10/16/17 15:42 - ABG ABG results: PT/INR, D-dimer D-Dimer 906 ng/mLFEU (0-500) H 10/16/17 16:38 Consult Discharge Plan - Plan Instructions: Prednisone (By mouth), Azithromycin (By mouth), Amlodipine (By mouth) Referrals: Paco Salcido DO [Primary Care Provider] - 10/27/17 1:00 pm (This appointment will be with Adelita Rizo CNP. ) Prescriptions: amLODIPine [Norvasc] 10 mg PO DAILY 30 Days #60 tablet Azithromycin [Azithromycin 6-Tab Pack] 250 mg PO PER PKG DI #6 tab predniSONE [PredniSONE] 10 mg PO DAILY #30 tablet
--- NOTE | 2017-10-20 07:59 | Electrocardiograph Report ---
[address] [address] Test Date: 2017-10-16 Pat Name: Ollie Ritchie Department: 102 Room: 3B Gender: M [employer] Dispatcher: Hi : 1935 Requested By: Ovi Townsend Order Number: [id number] Reading MD: Bernardino Garcia Measurements Intervals [place] Rate: 120 P: 64 WV: 172 QRS: 64 QRSD: 82 T: 60 QT: 298 QTc: 369 Interpretive Statements SINUS TACHYCARDIA ABNORMAL RHYTHM ECG Electronically Signed On 10-20-2017 7:57:27 EDT by Bernardino Garcia
--- NOTE | 2017-10-21 00:03 | Electrocardiograph Report ---
[address] [place], [place] [address] Test Date: 2017-10-19 Pat Name: Ollie Ritchie Department: 113 Room: 3B14 Gender: M [employer] Du[employer]ator: : 1935 Requested By: Soraida Saenz Order Number: [id number] Reading MD: Autumn Rodgers Measurements Intervals [place] Rate: 115 P: 75 [place]: 187 QRS: 61 QRSD: 94 T: 35 QT: 304 QTc: 372 Interpretive Statements SINUS TACHYCARDIA NONSPECIFIC T-WAVE ABNORMALITY ABNORMAL RHYTHM ECG Electronically Signed On 10-20-2017 23:59:52 EDT by Autumn Rodgers
[2017-10-21 08:55] LABS: AFP Tumor Marker Non-Pregnant 3 ng/mL (0-9); ANA IgG by ELISA NONE DETECTED (None Detected)
[2017-10-21 08:56] LABS: F-Actin (sm muscle) Ab IgG 7 Units (0-19)
== END 2017-10-19 14:32 | disposition home or self-care (01) | DRG 192 ==
LOC: 3BNU 15:35 → EMEROO 15:35 → 3BNU 21:19
PROVIDERS: ADMIT Internal Medicine; ATTEND Registered Nurse

== ENCOUNTER 2018-10-04 13:13 | Observation (INO) ==
--- NOTE | 2018-10-04 13:47 | Emergency Department Note ---
Disposition Clinical Impression: Difficulty walking Fall Qualifiers: Encounter type: initial encounter Qualified Code(s): W19.XXXA - Unspecified fall, initial encounter Disposition: Admitted As Inpatient Forms: ED Satisfaction Letter Time of Disposition: 16:38 General Adult HPI - General Chief complaint: ED Fall Stated complaint: Fall Head Injury Time Seen by Provider: 10/04/18 13:29 Source: patient Limitations: no limitations Nursing Notes Reviewed: Yes Vital Signs Reviewed: Yes - History of Present Illness HPI Narrative: 83 yo male with PMHx of DM, HTN, liver disease presents from outpatient office after a fall on . He states he had a mechanical fall where his right knee gave out on him and he hit his right arm and top of his head on the wall. Starting Thursday he was unable to walk straight and started listing to one side. When he went into his primary care doctor's office today he was told to come to the emergency room to get a CT scan of his head to rule out intracranial process. Patient denies headache currently as well as blurred vision, dizziness and lightheadedness, chest pain, shortness of breath. He has never had anything like this happen before. Pain Scale: 0 - Related Data Home Medications Medication Instructions Recorded Confirmed metFORMIN [Glucophage] 1,000 mg PO BIDWM 10/16/15 10/16/17 Albuterol Sulfate [Ventolin Hfa] 2 puff IH Q4H PRN 10/16/17 10/16/17 Finasteride [Proscar] 5 mg PO QPM 10/16/17 10/16/17 Fluticasone Propionate Nasal 100 mcg NS DAILY PRN 10/16/17 10/16/17 [Flonase] Loratadine [Claritin] 10 mg PO DAILY 10/16/17 10/16/17 Previous Rx's Medication Instructions Recorded Albuterol Neb [Proventil Neb] 2.5 mg IH Q6H 30 Days #120 10/19/17 Azithromycin [Azithromycin 6-Tab 250 mg PO PER PKG DI #6 tab 10/19/17 Pack] amLODIPine [Norvasc] 10 mg PO DAILY 30 Days #60 tablet 10/19/17 predniSONE [PredniSONE] 10 mg PO DAILY #30 tablet 10/19/17 Allergies Allergy/AdvReac Type Severity Reaction Status Date / Time tamsulosin [From Flomax] Allergy Hives Verified 10/16/17 18:46 ciprofloxacin [From Cipro] AdvReac Hives Verified 10/16/15 12:44 Penicillins AdvReac Rash Verified 10/16/17 15:50 All systems ED: reviewed and negative except as stated. Review of Systems: As Per HPI Constitutional: Denies: fever, weakness Eyes: Denies: vision change Cardiovascular: Denies: chest pain, palpitations, dyspnea on exertion Respiratory: Denies: cough, dyspnea, wheezes Gastrointestinal: Denies: abdominal pain, nausea, vomiting, diarrhea Genitourinary: Denies: dysuria, hematuria Musculoskeletal: Denies: back pain, neck pain Neurological: Reports: vertigo. Denies: headache, weakness, numbness, paresthesias, confusion Endocrine: Denies: fatigue Past Medical History - Past Medical History Attestation: Yes The following information was validated with the patient. Medical history: Reports: COPD, diabetes, hypertension, myocardial infarction - Social History Smoking Status: Never smoker Smokeless Tobacco Status: No Alcohol use: Reports: none Drug use: Reports: none Physical Exam - General Limitations: no limitations General appearance: alert, in no apparent distress - Head Head exam: atraumatic, normocephalic - Eye Eye exam: Present: normal appearance, PERRL, EOMI - ENT ENT exam: normal exam, normal oropharynx - Neck Neck exam: Present: normal inspection. Absent: tenderness, lymphadenopathy - Chest Chest inspection: Present: normal inspection. Absent: tenderness - Respiratory Respiratory exam: Present: normal lung sounds bilaterally - Cardiovascular Cardiovascular exam: Present: regular rate, normal rhythm - Abdominal Exam Abdominal exam: Present: soft, Non-Tender. Absent: distention, guarding, rebound, rigidity - Extremities Exam Extremities exam: Present: normal inspection. Absent: tenderness, pedal edema - Neurological Exam Neurological exam: Present: alert, oriented X3, CN II-XII intact. Absent: motor sensory deficit - Psychiatric Psychiatric exam: Present: normal affect, normal mood - Skin Skin exam: Present: warm, dry, intact Course Vital Signs Temperature 97.6 F 10/04/18 13:17 Pulse Rate 88 10/04/18 13:17 Respiratory Rate 18 10/04/18 13:17 Blood Pressure 132/78 10/04/18 13:17 O2 Sat by Pulse Oximetry 97 10/04/18 13:17 Temperature 97.6 F 10/04/18 13:17 Pulse Rate 84 10/04/18 14:53 Respiratory Rate 20 10/04/18 14:53 Blood Pressure 133/79 10/04/18 14:53 O2 Sat by Pulse Oximetry 95 10/04/18 14:53 Oxygen Delivery Oxygen Delivery Room Air Medical Decision Making - MDM Narrative Medical decision making narrative: Patient presents with signs and symptoms concerning for intracranial abnormality. We will obtain a CT scan of his head and call his primary care doctor for more information. [id number] with Dr. Salcido who states that the patient was not seen at his office today but that the patient has a an appointment on Thursday for follow-up for this fall. When the patient was explained to him, Dr. Salcido agrees that the patient likely needs an MRI to evaluate him for cerebellar etiology. We will obtain basic labs and admit the patient to the hospitalist. [id number] has accepted the patient for admission. - Medical Records Medical records reviewed: Yes I reviewed the patient's medical records. - Lab Data Lab results reviewed: Yes I reviewed the patient's lab results. - Radiology Data Radiology results reviewed: Yes I reviewed the patient's radiology results.
[2018-10-04 16:34] LABS: Bilirubin,Urine Negative (Negative); Blood,Urine Negative (Negative); Clarity,Urine Clear (Clear); Color,Urine Yellow (Yellow); Glucose,Urine (UA) Normal (Normal); Ketones,Urine Negative (Negative); Leukocyte Esterase,Urine Trace (Negative); Nitrite,Urine Negative (Negative); Protein,Urine Negative (Neg-Trace); Specific Gravity,Urine 1.021 (1.010-1.025); Urobilinogen,Urine Normal (Normal)
[2018-10-04 16:39] LABS: Bacteria,Urine None Seen per hpf (None-Few); Hyaline Casts,Urine None Seen per lpf (None-Few); RBC,Urine 0-3 per hpf (0-3); Squamous Epithelial Cell,Urine Many per lpf (None-Few); WBC,Urine 0-3 per hpf (0-3)
--- NOTE | 2018-10-04 16:53 | Emergency Department Note ---
Disposition Clinical Impression: Difficulty walking Fall Qualifiers: Encounter type: initial encounter Qualified Code(s): W19.XXXA - Unspecified fall, initial encounter Disposition: Admitted As Inpatient Forms: ED Satisfaction Letter General Adult HPI - General Chief complaint: ED Fall Stated complaint: Fall Head Injury Time Seen by Provider: 10/04/18 13:29 Source: patient Limitations: no limitations - History of Present Illness Pain Scale: 0 - Related Data Home Medications Medication Instructions Recorded Confirmed metFORMIN [Glucophage] 1,000 mg PO BIDWM 10/16/15 10/16/17 Albuterol Sulfate [Ventolin Hfa] 2 puff IH Q4H PRN 10/16/17 10/16/17 Finasteride [Proscar] 5 mg PO QPM 10/16/17 10/16/17 Fluticasone Propionate Nasal 100 mcg NS DAILY PRN 10/16/17 10/16/17 [Flonase] Loratadine [Claritin] 10 mg PO DAILY 10/16/17 10/16/17 Previous Rx's Medication Instructions Recorded Albuterol Neb [Proventil Neb] 2.5 mg IH Q6H 30 Days #120 10/19/17 Azithromycin [Azithromycin 6-Tab 250 mg PO PER PKG DI #6 tab 10/19/17 Pack] amLODIPine [Norvasc] 10 mg PO DAILY 30 Days #60 tablet 10/19/17 predniSONE [PredniSONE] 10 mg PO DAILY #30 tablet 10/19/17 Allergies Allergy/AdvReac Type Severity Reaction Status Date / Time tamsulosin [From Flomax] Allergy Hives Verified 10/16/17 18:46 ciprofloxacin [From Cipro] AdvReac Hives Verified 10/16/15 12:44 Penicillins AdvReac Rash Verified 10/16/17 15:50 Constitutional: Denies: fever, weakness Eyes: Denies: vision change Cardiovascular: Denies: chest pain, palpitations, dyspnea on exertion Respiratory: Denies: cough, dyspnea, wheezes Gastrointestinal: Denies: abdominal pain, nausea, vomiting, diarrhea Genitourinary: Denies: dysuria, hematuria Musculoskeletal: Denies: back pain, neck pain Neurological: Reports: vertigo. Denies: headache, weakness, numbness, paresthesias, confusion Endocrine: Denies: fatigue Past Medical History - Past Medical History Medical history: Reports: COPD, diabetes, hypertension, myocardial infarction - Social History Smoking Status: Never smoker Smokeless Tobacco Status: No Alcohol use: Reports: none Drug use: Reports: none Physical Exam - General Limitations: no limitations General appearance: alert, in no apparent distress Course Vital Signs Temperature 97.6 F 10/04/18 13:17 Pulse Rate 88 10/04/18 13:17 Respiratory Rate 18 10/04/18 13:17 Blood Pressure 132/78 10/04/18 13:17 O2 Sat by Pulse Oximetry 97 10/04/18 13:17 Temperature 97.6 F 10/04/18 13:17 Pulse Rate 84 10/04/18 14:53 Respiratory Rate 20 10/04/18 14:53 Blood Pressure 133/79 10/04/18 14:53 O2 Sat by Pulse Oximetry 95 10/04/18 14:53 Oxygen Delivery Oxygen Delivery Room Air Medical Decision Making - Lab Data Lab Results 10/04/18 Range/Units 16:20 Urine Color Yellow (Yellow) Urine Clarity Clear (Clear) Urine pH 6.0 (5.0-8.0) pH Units Ur Specific [place] 1.021 (1.010-1.025) Urine Protein Negative (Neg-Trace) mg/dL Urine Glucose (UA) Normal (Normal) mg/dL Urine Ketones Negative (Negative) mg/dL Urine Blood Negative (Negative) Urine Nitrite Negative (Negative) Urine Bilirubin Negative (Negative) Urine Urobilinogen Normal (Normal) mg/dL Ur Leukocyte Esterase Trace H (Negative) Urine Microscopic RBC 0-3 (0-3) per hpf Urine Microscopic WBC 0-3 (0-3) per hpf Ur Squamous Epith Cells Many H (None-Few) per lpf Urine Bacteria None Seen (None-Few) per hpf Hyaline Casts None Seen (None-Few) per lpf Ur Culture Indicated? NO. A (NO) Attestation Statement - Attestation Attestation: I examined this patient and my medical decision-making was reviewed with the Resident Physician. I agree with the documented findings, disposition and treatment plan as described except to the extent set forth below. 83-year-old male presents emergency room for falls. Patient has been falling frequently. Affect on . States his mechanical type fall. Hit his head on . His CT today was negative. He was sent over by his PCP office for a CT scan. All of his imaging is unremarkable. However, patient is unable to walk in a straight line. He certainly appears to his right frequently. Concerns for possible cerebellar stroke or other intracranial pathology. His CT today was unremarkable. Patient will be admitted secondary to the ambulation and coordination problems associated with that. He was okay with this plan. We did speak with the hospitalist. We will check some screening lab work as well. We did consult with his PCP, Dr. Mendoza.
[2018-10-04 16:57] LABS: Basophils % 0.4 %; Eosinophils # 0.1 K/mcL (0.0-0.6); Eosinophils % 1.1 %; Hematocrit 44.3 % (37.5-50.1); Hemoglobin 14.1 g/dL (12.9-16.9); Immature Granulocytes % 0.4 % (0-4); Lymphocytes # 2.1 K/mcL (0.6-4.6); Lymphocytes % 23.2 %; Mean Corpuscular HGB Conc 31.8 g/dL (31.6-35.5); Mean Corpuscular Hemoglobin 28.1 pg (28.0-33.3); Mean Corpuscular Volume 88.4 fL (83.0-100.0); Mean Platelet Volume 9.5 fL (9.4-12.4); Monocytes # 0.5 K/mcL (0.0-1.3); Monocytes % 5.8 %; Neutrophils # 6.4 K/mcL (1.6-8.9); Platelet Count 218 K/mcL (140-400); Red Blood Count 5.01 M/mcL (4.19-5.50); Red Cell Distribution Width 15.6 % (11.5-14.5); Segmented Neutrophils % 69.1 %
[2018-10-04 17:17] LABS: BUN/Creatinine Ratio 36 (6-26); Blood Urea Nitrogen 23 mg/dL (8-23); Calcium 9.9 mg/dL (8.6-10.3); Carbon Dioxide 29 mEq/L (23-29); Chloride 100 mEq/L (98-107); Glucose 79 mg/dL (70-105); Osmolality,Calculated 287 (280-300); Potassium 4.1 mEq/L (3.5-5.1); Sodium 137 mEq/L (136-145); eGFR For Non-African Americans > 60 (> 60)
[2018-10-04] MEDS ORDERED: Naloxone 0.4 MG/ML INJ IVP PRN (18:18)
[2018-10-04] MEDS ORDERED: Acetaminophen 325 MG TABLET PO PRN (18:18)
[2018-10-04] MEDS ORDERED: *HR* Dextrose 50 % in Water (Syg) 50 ML SYRINGE IVP PRN (18:28)
[2018-10-04] MEDS ORDERED: Dextrose Gel 15 GM/37.5 ML TUBE PO PRN ×2 (18:28)
[2018-10-04] MEDS ORDERED: D5% in Water 1,000 ML IVC PRN (18:28)
[2018-10-04] MEDS ORDERED: Fluticasone Propionate Nasal 50 MCG/SPRAY BOTTLE NS PRN (18:29)
[2018-10-04] MEDS ORDERED: Albuterol 2.5 MG/3 ML NEBULIZER IH SCH (18:30)
--- NOTE | 2018-10-04 18:42 | Internal Med History&Physical ---
<Asad Granda - Last Filed: 10/04/18 19:23> Date of Encounter: 10/04/18 Time of Encounter: 18:33 Internal Medicine - H&P: HPI Chief complaint: difficulty ambulating Admitted From: Emergency Dept Plans for Post Hospital Care: Home History of present illness: Mr. Ritchie is a 83 year old male with a past medical history of DM, HTN, COPD, Hepatic Steatosis who presented to ED from home for chief complaint of difficulty ambulating. Apparently last he had a mechanical fall and hit the top of his head on the wall and caught himself with his right arm. He did not have any immediate sequelae. Since Thursday though he has had difficulty ambulating. He describes it as not being able to walk towards a fixed point without veering to one side or the other. He denies headache, dizziness, confusion, disarthria, weakness, fatigue, numbness or tingling, incontinence, or any recurrent falls. His family present confirm just the difficulty ambulating, no behavior changes. He was recently started on a new diabetic medication, glyburide or glimepiride, he cannot remember which. He denies any other new medications. He denies illicit substance abuse. He states he called his PCP office and they requested he present to the ED for imaging. In the ED CT head showed chronic microvascular changes without acute process. CBC, BMP, and UA were all noncontributory. Past Med Surg Social Fam HX - Past Medical History Medical history: COPD, diabetes, hypertension, myocardial infarction - Social History Smoking Status: Never smoker Smokeless Tobacco Status: No Alcohol use: none Drug use: none - Family History Father Hx Family Cardiac Disorders: Yes ([place]) Hx Family Respiratory Disorders: No Hx Family Cancer: No Hx Family GI Disorders: No Hx Family Endocrine Disorder: No Hx Family Neuromuscular Disorders: No Hx Family Neurologic Disorders: Yes (Alzheimers) Hx Family HEENT Disorders: No Hx Family Autoimmune Disorders: No Mother Hx Family Cardiac Disorders: Yes (CHF) Hx Family Respiratory Disorders: Yes (Asthma) Hx Family Cancer: No Hx Family GI Disorders: No Hx Family Endocrine Disorder: Yes (DM) Hx Family Neuromuscular Disorders: No Hx Family Neurologic Disorders: No Hx Family HEENT Disorders: No Hx Family Autoimmune Disorders: No Internal Medicine - H&P: Meds RX: Albuterol Sulfate [Ventolin Hfa] 2 puff IH Q4H PRN 10/16/17 [History] RX: Finasteride [Proscar] 5 mg PO QPM 10/16/17 [History] RX: Fluticasone Propionate Nasal [Flonase] 100 mcg NS DAILY PRN 10/16/17 [History] RX: Loratadine [Claritin] 10 mg PO DAILY PRN 10/16/17 [History] RX: Albuterol Neb [Proventil Neb] 2.5 mg IH Q6H 30 Days #120 10/19/17 [Rx] Cyanocobalamin (Vitamin B-12) [Vitamin B12] 1,000 mcg PO DAILY 30 Days #30 tablet 10/05/18 [Rx] RX: Aspirin [Lo-Dose Aspirin EC] 81 mg PO DAILY 10/05/18 [History] RX: Budesonide/Formoterol 160/4.5 [Symbicort 160/4.5] 2 puff IH BID 10/05/18 [History] RX: Glimepiride [Amaryl] 4 mg PO DAILY 10/05/18 [History] RX: Metformin HCl 1,000 mg PO BID 10/05/18 [History] RX: Promethazine HCl/Codeine [Promethazine-Codeine Syrup] 5 ml PO Q6H PRN 10/05/18 [History] Allergy/AdvReac Type Severity Reaction Status Date / Time tamsulosin [From Flomax] Allergy Hives Verified 10/05/18 08:05 ciprofloxacin [From Cipro] AdvReac Hives Verified 10/05/18 08:05 Penicillins AdvReac Rash Verified 10/05/18 08:05 All Systems PM: A 10-system review of systems was performed and is negative for pertinent findings except as documented above in the HPI. - Constitutional Constitutional: as per HPI, no chills, no fatigue, no fever(s), no weakness - EENT Eyes: no blurry vision, no change in vision - Cardiovascular Cardiovascular ROS IM: no chest pain, no diaphoresis, no irregular heart rhythm, no lightheadedness, no palpitations - Respiratory Respiratory: dyspnea - Gastrointestinal Gastrointestinal: no abdominal pain, no change in bowel habits - Genitourinary Genitourinary ROS male: no difficulty urinating, no urinary incontinence - Musculoskeletal Musculoskeletal ROS IM: back pain, no muscle weakness - Integumentary Integumentary IM: no new lesions - Neurological Neurological ROS: abnormal gait, disequilibrium, lack of coordination, no abnormal hearing, no abnormal movements, no abnormal speech, no behavioral changes, no confusion, no convulsions, no dizziness, no focal weakness, no frequent falls, no headache(s), no loss of vision, no memory loss, no numbness, no paresthesias, no radicular pain, no vertigo, no weakness - Psychiatric Psychiatric: no confusion - Endocrine Endocrine IM: no fatigue - Hematologic/Lymphatic Hematologic/Lymphatic: no easy bleeding, no easy bruising - Constitutional Vitals: Temp Pulse Resp BP Pulse Ox 97.6 F 89 20 135/89 96 10/04/18 13:17 10/04/18 17:20 10/04/18 18:07 10/04/18 18:07 10/04/18 17:20 General appearance: Present: A&O X 3 Exam: Alert and oriented 3, normal affect Extraocular movements intact, pupils equal and reactive to light Cranial nerves II through XII intact, bilateral patellar and brachial radialis reflexes 2 out of 4 Sensation and motor intact in all 4 extremities, except for 0/4 ankle dorsiflexion bilaterally Patient swaying when standing, Romberg test positive, no clonus noted Heart in regular rate and rhythm without murmur or gallop auscultated Lungs diffusely coarse and diminished, wheeze in upper left lung field Abdomen obese and soft and nontender with normal bowel sounds present Skin warm and dry with bruising on right upper extremity, no bruising or abrasions on scalp Internal Med - H&P Results - Labs CBC & Chem 7: 10/04/18 16:39 10/04/18 16:39 Labs: Short CBC 10/04/18 Range/Units 16:39 WBC 9.2 (4.3-11.1) K/mcL Hgb 14.1 (12.9-16.9) g/dL Hct 44.3 (37.5-50.1) % Plt Count 218 (140-400) K/mcL Neutrophils # 6.4 (1.6-8.9) K/mcL BMP 10/04/18 16:39 Sodium 137 Potassium 4.1 Chloride 100 Carbon Dioxide 29 BUN 23 Creatinine 0.64 L Glucose 79 Calcium 9.9 Urine 10/04/18 Range/Units 16:20 Urine Color Yellow (Yellow) Urine Clarity Clear (Clear) Urine pH 6.0 (5.0-8.0) pH Units Ur Specific [place] 1.021 (1.010-1.025) Urine Protein Negative (Neg-Trace) mg/dL Urine Glucose (UA) Normal (Normal) mg/dL - Impressions ITS Impressions Head CT 10/04/18 13:39 IMPRESSION: No acute intracranial abnormality. Chronic microvascular ischemic changes. D/ / Deo Roa / Deo Roa Interpreting Provider: Deo Roa - Assessment and Plan (1) Diabetes mellitus Current Visit: No Status: Chronic Assessment and plan: Holding home diabetic medications Before meals at bedtime Accu-Cheks, diabetic diet, low-dose sliding scale insulin protocol Qualifiers: Diabetes mellitus type: type 2 Diabetes mellitus fdc insulin use: without fdc use Diabetes mellitus complication status: without complication Qualified Code(s): E11.9 - Type 2 diabetes mellitus without complications (2) Hypertension Current Visit: No Status: Chronic Assessment and plan: Holding home amlodipine until reconciled by pharmacy When necessary Lopressor, Blood pressure currently stable Qualifiers: Hypertension type: essential hypertension Qualified Code(s): I10 - Essential (primary) hypertension (3) Posterior column ataxia Current Visit: Yes Status: Acute Assessment and plan: Patient presented for ataxia onset 2 days ago, patient fell and hit his head [address] head in the ED demonstrated chronic microvascular changes, no acute process It is unclear whether these 2 events are related, physical exam notable for positive Romberg Differential includes vitamin or mineral deficiency, mass effect, various myelopathies Patient otherwise clinically and medically stable Plan for MRI of head and brain tomorrow We will also test for vitamin D, vitamins B1/B6/B12, RPR Subcutaneous heparin for DVT prophylaxis - Time Spent With Patient Total time spent is greater than 50% in coordination of care (as documented) at patient's floor/unit and/or counseling patient: <Paco Salcido - Last Filed: 10/05/18 18:50> Date of Encounter: 10/05/18 Internal Medicine - H&P: HPI History of present illness: Mr. Ritchie is a 83 year old male All Systems PM: A 10-system review of systems was performed and is negative for pertinent findings except as documented above in the HPI. - Constitutional Vitals: Temp Pulse Resp BP Pulse Ox 97.4 F L 94 16 131/70 95 10/05/18 15:39 10/05/18 15:39 10/05/18 15:39 10/05/18 15:39 10/05/18 15:39 Internal Med - H&P Results - Labs CBC & Chem 7: 10/04/18 16:39 10/04/18 16:39 - Impressions ITS Impressions Head CT 10/04/18 13:39 IMPRESSION: No acute intracranial abnormality. Chronic microvascular ischemic changes. D/ / Deo Roa / Deo Roa Interpreting Provider: Deo Roa Brain MRI 10/04/18 19:32 IMPRESSION: 1. No acute intracranial abnormality. 2. Moderate chronic white matter microvascular ischemic changes. D/ / Vivek Samson / Vivek Samson Interpreting Provider: Vivek Samson - Assessment and Plan (1) Diabetes mellitus Current Visit: No Status: Chronic Qualifiers: Diabetes mellitus type: type 2 Diabetes mellitus terminal carman insulin use: without fdc use Diabetes mellitus complication status: without complication Qualified Code(s): E11.9 - Type 2 diabetes mellitus without complications (2) Hypertension Current Visit: No Status: Chronic Qualifiers: Hypertension type: essential hypertension Qualified Code(s): I10 - Essential (primary) hypertension (3) Posterior column ataxia Current Visit: Yes Status: Acute - Time Spent With Patient Total time spent is greater than 50% in coordination of care (as documented) at patient's floor/unit and/or counseling patient: - Attending Attestation I examined this patient and my medical decision-making was reviewed with the Resident Physician. I agree with the documented findings, disposition and treatment plan as described except to the extent set forth below.
[2018-10-04] MEDS ORDERED: Gadolinium Contrast Agent (WT Based) IV PRN (19:32)
[2018-10-04] MEDS ORDERED: *HR* Metoprolol 5 MG/5 ML VIAL IVP PRN (19:36)
[2018-10-04] MEDS ORDERED: Insulin LISPRO 300 UNITS/3 ML VIAL SQ SCH (21:00)
[2018-10-05] MEDS: Albuterol 2.5 MG/3 ML NEBULIZER IH SCH ×3 (04:09→15:39)
[2018-10-05] MEDS ORDERED: *HR* Heparin 5,000 UNIT/ML VIAL SQ SCH (06:00)
[2018-10-05] MEDS: Insulin LISPRO 300 UNITS/3 ML VIAL SQ SCH ×2 (07:51→12:04)
[2018-10-05] MEDS ORDERED: Loratadine 10 MG TABLET PO SCH (09:00)
--- NOTE | 2018-10-05 10:24 | Discharge Summary ---
<Asad Granda - Last Filed: 10/05/18 18:53> - NOTES TO OUTPATIENT PROVIDER Notes to Outpatient Provider: Mr. Ritchie was admitted for ataxia x 2 days. He did have a mechanical fall and hit his head 4 days ago, unclear if these events are related. CT head and brain MRI were noncontributory. CBC, BMP, UA were also benign. Secondary to positive Romberg on exam posterior column ataxia was suspected. Vitamins B12, B1, B6, E and RPR were all drawn. Vitamin B12 was low, other vitamins are send outs. RPR pending. 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 They recommended tight glycemic control and possibly bilateral foot and ankle orthotics. Orders not resulted at time of discharge: Pending orders 10/05/18 04:39 RPR [Treponema Pallidum Ab] AM 0400 Vitamin B1 (Thiamine) Whole Bl AM 0400 Vitamin B6 (Pyridoxal 5-Phos AM 0400 Vitamin E AM 0400 Date of Encounter: 10/05/18 Time of Encounter: 08:00 - Discharge Diagnosis (1) Diabetes mellitus Priority: Secondary Status: Chronic Qualifiers: Diabetes mellitus type: type 2 Diabetes mellitus termite treater helper insulin use: without penitentiary use Diabetes mellitus complication status: without complication Qualified Code(s): E11.9 - Type 2 diabetes mellitus without complications (2) Hypertension Priority: Secondary Status: Chronic Qualifiers: Hypertension type: essential hypertension Qualified Code(s): I10 - Essential (primary) hypertension (3) Posterior column ataxia Priority: Primary Status: Resolved Assessment and Plan: Patient presented for ataxia onset 2 days ago, patient fell and hit his head [address] head in the ED demonstrated chronic microvascular changes, no acute process It is unclear whether these 2 events are related, physical exam notable for positive Romberg Differential includes vitamin or mineral deficiency, mass effect, various myelopathies Patient otherwise clinically and medically stable CT head and MRI brain noncontributory Vitamin B12 low, vitamin B-1/B6/E pending RPR negative Patient was evaluated by neurology, assess patient as sensory ataxia secondary to diabetes Recommended tight glycemic control, PTOT, bilateral foot and ankle orthotics We will discharge in stable condition with home health PTOT, close PCP follow-up Hospital course: Mr. Ritchie is a 83 year old male who was admitted for ataxia. He had 2 days of ataxia after a fall 4 days previously. Imaging was done on arrival, CT head and MRI brain were both noncontributory. On exam he did have positive Romberg i ndicating possible posterior column ataxia. He was admitted for workup. Vitamin B12 was found to be decreased, vitamins B1/B6/E all pending. Syphilis negative. 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 They recommended tight glycemic control, PTOT, home health PTOT, feet and ankle orthotics. He will be discharged in stable condition with home health PTOT and close PCP follow-up. We will also send with B12 supplement. Discharge discussed with: patient, quantitative consultant - Time Spent with Patient Total time spent providing and/or coordinating discharge services: - Discharge Medications Prescriptions: New Cyanocobalamin (Vitamin B-12) [Vitamin B12] 1,000 mcg PO DAILY 30 Days #30 tablet Continue RX: Loratadine [Claritin] 10 mg PO DAILY PRN PRN Reason: Allergy Symptoms RX: Fluticasone Propionate Nasal [Flonase] 100 mcg NS DAILY PRN PRN Reason: Allergy Symptoms RX: Finasteride [Proscar] 5 mg PO QPM RX: Albuterol Sulfate [Ventolin Hfa] 2 puff IH Q4H PRN PRN Reason: Shortness Of Breath RX: Albuterol Neb [Proventil Neb] 2.5 mg IH Q6H 30 Days #120 RX: Budesonide/Formoterol 160/4.5 [Symbicort 160/4.5] 2 puff IH BID RX: Glimepiride [Amaryl] 4 mg PO DAILY RX: Metformin HCl 1,000 mg PO BID RX: Promethazine HCl/Codeine [Promethazine-Codeine Syrup] 5 ml PO Q6H PRN PRN Reason: Cough RX: Aspirin [Lo-Dose Aspirin EC] 81 mg PO DAILY Home Medications: RX: Albuterol Sulfate [Ventolin Hfa] 2 puff IH Q4H PRN 10/16/17 [History] RX: Finasteride [Proscar] 5 mg PO QPM 10/16/17 [History] RX: Fluticasone Propionate Nasal [Flonase] 100 mcg NS DAILY PRN 10/16/17 [History] RX: Loratadine [Claritin] 10 mg PO DAILY PRN 10/16/17 [History] RX: Albuterol Neb [Proventil Neb] 2.5 mg IH Q6H 30 Days #120 10/19/17 [Rx] Cyanocobalamin (Vitamin B-12) [Vitamin B12] 1,000 mcg PO DAILY 30 Days #30 tablet 10/05/18 [Rx] RX: Aspirin [Lo-Dose Aspirin EC] 81 mg PO DAILY 10/05/18 [History] RX: Budesonide/Formoterol 160/4.5 [Symbicort 160/4.5] 2 puff IH BID 10/05/18 [History] RX: Glimepiride [Amaryl] 4 mg PO DAILY 10/05/18 [History] RX: Metformin HCl 1,000 mg PO BID 10/05/18 [History] RX: Promethazine HCl/Codeine [Promethazine-Codeine Syrup] 5 ml PO Q6H PRN 10/05/18 [History] Allergies/Adverse Reactions: Allergy/AdvReac Type Severity Reaction Status Date / Time tamsulosin [From Flomax] Allergy Hives Verified 10/05/18 08:05 ciprofloxacin [From Cipro] AdvReac Hives Verified 10/05/18 08:05 Penicillins AdvReac Rash Verified 10/05/18 08:05 Date of admission: 10/04/18 17:28 Primary care physician: Paco Salcido Consults: 10/04/18 18:24 Consult to Occupational Therapy [CONS] Routine Comment: Evaluate, develop and implement POC Reason for Consult: Patient admitted for difficulty ambulating, assess ambulation/functional ability Does patient have active BEDREST order?: No Is patient medically & hemodynamically stable?: Yes Patient assessed for mobility or mobilized this visit?: No Consult to Physical Therapy [CONS] Routine Comment: Evaluate, develop and implement POC Reason for Consult: Patient admitted for difficulty ambulating, assess ambulation/functional ability Does patient have active BEDREST order?: No Is patient medically & hemodynamically stable?: Yes Patient assessed for mobility or mobilized this visit?: No Discharging clinician: Asad Granda Anticipated date of discharge: 10/05/18 - Constitutional Vitals: Temp Pulse Resp BP Pulse Ox 98.1 F 83 16 103/59 97 10/05/18 06:43 10/05/18 06:43 10/05/18 06:43 10/05/18 06:43 10/05/18 06:43 General appearance: Present: A&O X 3 Exam: Alert and oriented 3, normal affect Extraocular movements intact, pupils equal and reactive to light Cranial nerves II through XII intact, bilateral patellar and brachial radialis reflexes 2 out of 4 Sensation and motor intact in all 4 extremities, except for 0/4 ankle dorsiflexion bilaterally Patient swaying when standing, Romberg test is negative, no clonus noted Heart in regular rate and rhythm without murmur or gallop auscultated Lungs diffusely coarse and diminished, wheeze in upper left lung field Abdomen obese and soft and nontender with normal bowel sounds present Skin warm and dry with bruising on right upper extremity, no bruising or abrasions on scalp - Patient Status Disposition: Home Health Service Condition: Good Functional capacity at discharge: uses cane/walker Overall status at discharge: patient is back to baseline - Discharge Instructions Instructions: Fall Prevention (DC), Fall Prevention (GEN), Fall Prevention for the Older Adult, Generation Engineering Technologist (GEN) Follow Up With: Paco Salcido DO [Primary Care Provider] - 10/06/18 3:30 pm Additional Instructions: Home Health has been set up through [facility]. They will contact you to schedule a date and time to complete admission. If you need to contact them for any reason please call #[phone] or #[phone]. - Diet and Activity Activity: ambulate only with your walker, wear oxygen at night Diet: diabetic diet, low fat, low cholesterol, low salt diet <Paco Salcido - Last Filed: 10/07/18 10:47> Orders not resulted at time of discharge: Pending orders 10/05/18 04:39 Vitamin B1 (Thiamine) Whole Bl AM 0400 Vitamin E AM 0400 Date of Encounter: 10/07/18 - Discharge Diagnosis (1) Diabetes mellitus Status: Chronic Qualifiers: Diabetes mellitus type: type 2 Diabetes mellitus termite treater helper insulin use: without termite treater helper use Diabetes mellitus complication status: without complication Qualified Code(s): E11.9 - Type 2 diabetes mellitus without complications (2) Hypertension Status: Chronic Qualifiers: Hypertension type: essential hypertension Qualified Code(s): I10 - Essential (primary) hypertension (3) Posterior column ataxia Status: Resolved Hospital course: Mr. Ritchie is a 83 year old male - Time Spent with Patient Total time spent providing and/or coordinating discharge services: Date of admission: 10/04/18 17:28 Primary care physician: Paco Salcido Consults: 10/04/18 18:24 Consult to Physical Therapy [CONS] Routine Comment: Evaluate, develop and implement POC Reason for Consult: Patient admitted for difficulty ambulating, assess ambulation/functional ability Does patient have active BEDREST order?: No Is patient medically & hemodynamically stable?: Yes Patient assessed for mobility or mobilized this visit?: No 10/05/18 13:22 Consult to Neurology [CONS] Routine Consulting Provider: Neurology [facility] Reason for Consult: Patient exhibiting signsof posterior column ataxia. CT head and MRI brain negative, B12 low. RPR, vitamins B1/B6/E pending. Seeking recs on any further work up warranted. Time Notified: 13:24 Call Completed: Yes - Constitutional Vitals: Temp Pulse Resp BP Pulse Ox 97.4 F L 94 16 131/70 95 10/05/18 15:39 10/05/18 15:39 10/05/18 15:39 10/05/18 15:39 10/05/18 15:39 - Attending Attestation I examined this patient and my medical decision-making was reviewed with the Resident Physician. I agree with the documented findings, disposition and treatment plan as described except to the extent set forth below.
--- NOTE | 2018-10-05 14:28 | Neurology - Consult Note ---
<Niels Love - Last Filed: 10/05/18 14:22> Date of Encounter: 10/05/18 Time of Encounter: 14:22 Assessment and Plan (1) Falls Current Visit: Yes Status: Acute Neurology consulted to evaluate for cause of ambulatory dysfunction. Patient had mechanical ground-level fall on . Began having some disequilibrium and balance changes beginning Thursday. MRI and CT of head negative for acute abnormality. MRI showing moderate chronic microvascular ischemic changes UA unremarkable UA CBC and chemistry unremarkable Clinically, the patient has returned to baseline. Per my examination today there are no focal or lateralizing findings that would concern me for an acute neurologic process and this has been ruled out with negative neuroimaging. Also, the neurological exam found diminished sensation of his bilateral feet and he was noted to have a positive Romberg's test. I suspect that the disequalibrium is caused by proprioception issues with a positive Romberg's, uncontrolled diabetes, and neuropathy of this b/l feet. He does have somewhat of a stooped posture (chronic) while ambulating but does not appear to have any ataxia, spasticity or broad-based gait. He notes a h/o a lumbar spine surgery and reports that he has chronic leg and lower back pain. I suspect that this is the cause of his stopped posture with ambulation. He denies any cauda equina symptoms. PLAN: PT/OT evaluation-recommendations appreciated Vitamin studies pending Given microvascular ischemic changes strongly recommend tight glycemic control and hypertension management. Continuous medical and supportive care. Qualifiers: Encounter type: initial encounter Qualified Code(s): W19.XXXA - Unspecified fall, initial encounter History of Present Illness Chief complaint: Ambulatory dysfunction HPI: Mr. Ritchie is a 83 year old male with a PMH of COPD, DM and HTN. He presented to the ED with ambulatory dysfunction. He reports that he suffered a mechanical ground-level fall and subsequently hit his head. He denies any concussive symptoms since the fall. He reports that from to Thursday he did not have any issues with ambulation. However, on Thursday he noticed some disequilibrium with ambulation and notes that when using his walker he would drift from left to right; stating "I could not walk in a straight line". He denies any dizziness, tinnitus, vision changes, headaches, dysphagia, d ysarthria, unilateral weakness or gait changes. Again, he does note disequilibrium, also he is reporting burning and paresthesias of the bilateral feet. CT imaging of the head negative for acute intracranial abnormality. MRI imaging obtained and negative for acute intracranial abnormality but showing findings of moderate chronic white matter microvascular ischemic changes. CBC, chemistry and a B vitamin studies unremarkable. UA negative for acute infection. Again, neurology consulted for evaluation of ambulatory dysfunction. Past Med Surg Social Fam HX - Past Medical History Medical history: COPD, diabetes, hypertension, myocardial infarction Psychiatric history: no psych history - Past Surgical History Surgical History: herniorrhaphy - Social History Smoking Status: Never smoker Smokeless Tobacco Status: No Alcohol use: none Drug use: none - Family History Father Hx Family Cardiac Disorders: Yes ([place]) Hx Family Respiratory Disorders: No Hx Family Cancer: No Hx Family GI Disorders: No Hx Family Endocrine Disorder: No Hx Family Neuromuscular Disorders: No Hx Family Neurologic Disorders: Yes (Alzheimers) Hx Family HEENT Disorders: No Hx Family Autoimmune Disorders: No Mother Hx Family Cardiac Disorders: Yes (CHF) Hx Family Respiratory Disorders: Yes (Asthma) Hx Family Cancer: No Hx Family GI Disorders: No Hx Family Endocrine Disorder: Yes (DM) Hx Family Neuromuscular Disorders: No Hx Family Neurologic Disorders: No Hx Family HEENT Disorders: No Hx Family Autoimmune Disorders: No Medications and Allergies Albuterol Sulfate [Ventolin Hfa] 2 puff IH Q4H PRN 10/16/17 [History] Finasteride [Proscar] 5 mg PO QPM 10/16/17 [History] Fluticasone Propionate Nasal [Flonase] 100 mcg NS DAILY PRN 10/16/17 [History] Loratadine [Claritin] 10 mg PO DAILY PRN 10/16/17 [History] Albuterol Neb [Proventil Neb] 2.5 mg IH Q6H 30 Days #120 10/19/17 [Rx] Aspirin [Lo-Dose Aspirin EC] 81 mg PO DAILY 10/05/18 [History] Budesonide/Formoterol 160/4.5 [Symbicort 160/4.5] 2 puff IH BID 10/05/18 [History] Glimepiride [Amaryl] 4 mg PO DAILY 10/05/18 [History] Metformin HCl 1,000 mg PO BID 10/05/18 [History] Promethazine HCl/Codeine [Promethazine-Codeine Syrup] 5 ml PO Q6H PRN 10/05/18 [History] Allergy/AdvReac Type Severity Reaction Status Date / Time tamsulosin [From Flomax] Allergy Hives Verified 10/05/18 08:05 ciprofloxacin [From Cipro] AdvReac Hives Verified 10/05/18 08:05 Penicillins AdvReac Rash Verified 10/05/18 08:05 All Systems: The remainder of the systems were reviewed and are negative Review of Systems: REVIEW OF SYSTEMS GENERAL: Negative for any nausea, vomiting, fevers, chills, or weight loss, fati ant NEUROLOGIC: Negative for any headache, visual changes, facial asymmetry, dysphagia, dysarthria, hemiparesis, hemisensory deficits, unilateral weakness or numbness/tingling, speech or language dysfunction, coordination difficulties, POSITIVE:, Disequilibrium, falls, balance changes, burning and paresthesias of bilateral feet HEENT: Negative for any head trauma, neck trauma, neck stiffness, photophobia, phonophobia CARDIAC: Negative for any chest pain, dyspnea on exertion, HTN, peripheral edema GASTROINTESTINAL: Negative for any abdominal pain, nausea, vomiting or diarrhea GENITOURINARY: Negative for any dysuria, hematuria, incontinence. ENDOCRINE: Reports episodes of hyperglycemia MUSCULOSKELETAL: Positive loss of strength, , limitations to motor activity or tolerance Physical Examination - Vital Signs Vital Signs: Initial Vital Signs Temp Pulse Resp BP Pulse Ox 97.6 F 88 18 132/78 97 10/04/18 13:17 10/04/18 13:17 10/04/18 13:17 10/04/18 13:17 10/04/18 13:17 - Exam Exam: Examination: General Examination: *CONSTITUTIONAL: Alert and oriented x3, no acute distress *GENERAL APPEARANCE OF PATIENT appears healthy and well groomed *EYES: pupils equal, round, reactive to light and accommodation, conjunctiva clear *CARDIOVASCULAR RRR, no peripheral edema, distal temperature normal, dorsalis pedis pulses normal. Musculoskeletal: *GAIT AND STATION Positive Romberg testing, stooped posture with gait, gait is somewhat broad-based. Reporting low back pain with activity which is chronic. *ASSESSMENT OF MUSCLE STRENGTH IN THE UPPER AND LOWER EXTREMITIES bilateral deltoid, bicep, tricep, blue crabber strength, hip flexors ,anterior tibialis, dorsoflexion of the foot 4/5 *MUSCLE TONE IN THE UPPER AND LOWER EXTREMITIES normal. No abnormal movements, fasciculations or atrophy identified. Neurological: *ORIENTATION to person, situation, time and place *RECURRENT AND REMOTE MEMORY intact *ATTENTION AND CONCENTRATION are normal *LANGUAGE FUNCTION no significant aphasia or dysarthia was noted. *FUND OF KNOWLEDGE aware of current events, past history, vocabulary *MENTAL attention span and concentration normal. *CN II optic fundi were normal, no papilledema noted. *CN III,IV, PERRLA extraocular eye movements were full, no nystagmus and no ptosis noted. *CN V shows normal sensation and jaw opens symmetrically. *CN VII shows normal facial movement symmetrically, upper and lower bilaterally. *CN VIII shows no significant hearing loss on exam *CN IX,,X palate elevated symmetrically *CN XI normal strength in the sternocleidomastoid muscles, symmetrical shoulder shrugging. *CN XII tongue protruded in the midline, with normal strength and movement. *SENSORY EXAMINATION light touch intact on bilateral face, bilateral arms and legs. Diminished sensation to bilateral feet *REFLEXES: deep tendon reflexes were normal and symmetrical , grade 1/4 diffusely, no pathological reflexes were noted. *CEREBELLAR TESTING normal finger to nose, heel/knee/ayala *PAIN LEVEL 0 Results - Laboratory Findings CBC and BMP: 10/04/18 16:39 10/04/18 16:39 Abnormal lab findings: Abnormal lab results RDW 15.6 % (11.5-14.5) H 10/04/18 16:39 Creatinine 0.64 mg/dL (0.70-1.30) L 10/04/18 16:39 BUN/Creatinine Ratio 36 (6-26) H 10/04/18 16:39 POC Glucose 149 mg/dL (70-99) H 10/04/18 19:35 Vitamin B12 246 pg/mL (250-1100) L 10/05/18 04:39 Ur Leukocyte Esterase Trace (Negative) H 10/04/18 16:20 Ur Squamous Epith Cells Many per lpf (None-Few) H 10/04/18 16:20 Ur Culture Indicated? NO. (NO) A 10/04/18 16:20 - Diagnostic Findings Additional findings: MR/MR head/brain wo con IMPRESSION: 1. No acute intracranial abnormality. 2. Moderate chronic white matter microvascular ischemic changes. RDER #: [id number] CT/CT head/brain wo con IMPRESSION: No acute intracranial abnormality. Chronic microvascular ischemic changes. Consult Discharge Plan - Plan Additional Instructions: Home Health has been set up through [facility]. They will contact you to schedule a date and time to complete admission. If you need to contact them for any reason please call #[phone] or #[phone]. Referrals: Paco Salcido DO [Primary Care Provider] - 10/06/18 3:30 pm <Raleigh Pierre - Last Filed: 10/05/18 16:45> Date of Encounter: 10/05/18 Assessment and Plan (1) Falls Current Visit: Yes Status: Acute I have personally performed a [id number] assessment of the patient and have reviewed the PA/INTRUSION ANALYST note. 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 He has poor proprioception, he has substantial weakness in the muscles below the knees distally. These factors combined are causing him to fall. He does have a positive Romberg will remain at risk for falls whenever he is in the poorly lighted room. I would recommend aggressive management of his diabetes mellitus, his hemoglobin A1c is about 9. I would also recommend having him fitted for bilateral ankle-foot orthotics. Otherwise the MRI scan of the brain was negative I see no evidence to suspect acute cerebral infarction. I will reevaluate him at your request. He should follow up with his primary care provider after discharge for ongoing management of his diabetes mellitus and to discuss appropriate lifestyle changes. Qualifiers: Encounter type: initial encounter Qualified Code(s): W19.XXXA - Unspecified fall, initial encounter History of Present Illness HPI: The chart was reviewed, the [id number] assessment was performed on this patient. He was examined independently Mr. Ritchie is a 83 year old male who was seen for neurologic consultation at the request of the internal medicine group secondary to eye disequilibrium. He is a poorly controlled diabetic and also has complaints of burning paresthesias in the feet. I agree with the assessment of the APARTMENT LEASING MANAGER as stated above. MRI scan of the brain was obtained and reveals severe confluent deep white matter change. His main complaint is that whenever he tries to stand or walk in the dark or in a poorly lit room balance trouble is worse. All Systems: The remainder of the systems were reviewed and are negative Review of Systems: The balance of the systems review is negative. Physical Examination - Vital Signs Vital Signs: Initial Vital Signs Temp Pulse Resp BP Pulse Ox 97.6 F 88 18 132/78 97 10/04/18 13:17 10/04/18 13:17 10/04/18 13:17 10/04/18 13:17 10/04/18 13:17 - Exam Exam: I have personally performed a [id number] assessment of the patient and have reviewed the PA/INTRUSION ANALYST note. My impressions are as follows: Examination: General Examination: *CONSTITUTIONAL: Alert and oriented x3, no acute distress *GENERAL APPEARANCE OF PATIENT appears healthy and well groomed *EYES: pupils equal, round, reactive to light and accommodation, conjunctiva clear *CARDIOVASCULAR RRR, no peripheral edema, distal temperature normal, dorsalis pedis pulses normal. Musculoskeletal: *GAIT AND STATION Positive Romberg testing, stooped posture with gait, gait is somewhat broad-based. Reporting low back pain with activity which is chronic. *ASSESSMENT OF MUSCLE STRENGTH IN THE UPPER AND LOWER EXTREMITIES bilateral deltoid, bicep, tricep, blue crabber strength, are 5/5. hip flexors 4/5 symmetrically ,anterior tibialis, dorsoflexion of the foot 3/5 symmetrically. *MUSCLE TONE IN THE UPPER AND LOWER EXTREMITIES normal. No abnormal movements, fasciculations or atrophy identified. Neurological: *ORIENTATION to person, situation, time and place *RECURRENT AND REMOTE MEMORY intact *ATTENTION AND CONCENTRATION are normal *LANGUAGE FUNCTION no significant aphasia or dysarthia was noted. *FUND OF KNOWLEDGE aware of current events, past history, vocabulary *MENTAL attention span and concentration normal. *CN II optic fundi were normal, no papilledema noted. *CN III,IV, PERRLA extraocular eye movements were full, no nystagmus and no ptosis noted. *CN V shows normal sensation and jaw opens symmetrically. *CN VII shows normal facial movement symmetrically, upper and lower bilaterally. *CN VIII shows no significant hearing loss on exam *CN IX,,X palate elevated symmetrically *CN XI normal strength in the sternocleidomastoid muscles, symmetrical shoulder shrugging. *CN XII tongue protruded in the midline, with normal strength and movement. *SENSORY EXAMINATION light touch intact on bilateral face, normal sensation of both upper extremities. There is a decreased sensation to pinprick in a distal to proximal gradient of both lower extremities, proprioception is a lso diminished of the small joints distally. *REFLEXES: deep tendon reflexes were normal and symmetrical , grade 1/4 symmetrically of the biceps triceps and brachial radialis. Patellar reflexes are absent symmetrically, Achilles reflexes are absent symmetrically. *CEREBELLAR TESTING normal finger to nose, heel/knee/ayala *PAIN LEVEL 0 Results - Laboratory Findings CBC and BMP: 10/04/18 16:39 10/04/18 16:39 Abnormal lab findings: Abnormal lab results RDW 15.6 % (11.5-14.5) H 10/04/18 16:39 Creatinine 0.64 mg/dL (0.70-1.30) L 10/04/18 16:39 BUN/Creatinine Ratio 36 (6-26) H 10/04/18 16:39 POC Glucose 171 mg/dL (70-99) H 10/05/18 15:42 Vitamin B12 246 pg/mL (250-1100) L 10/05/18 04:39 Ur Leukocyte Esterase Trace (Negative) H 10/04/18 16:20 Ur Squamous Epith Cells Many per lpf (None-Few) H 10/04/18 16:20 Ur Culture Indicated? NO. (NO) A 10/04/18 16:20
[2018-10-05 15:43] VITALS: BP 131/70
--- NOTE | 2018-10-05 16:45 | Physician Discharge Referral ---
<Asad Granda - Last Filed: 10/05/18 16:44> Home Health/Hosp Referral Info Transfer to: Home Health Attending Provider: Omari Provider in Charge Post Discharge: PCP - Diagnosis (1) Posterior column ataxia Priority: Primary Status: Acute (2) Diabetes mellitus Priority: Secondary Status: Chronic (3) Hypertension Priority: Secondary Status: Chronic - Respiratory Orders Oxygen / L per min (2LNC at night) Smoking Cessation: Smoking cessation has been advised. For more information, call the [place] Tobacco Quit Line at 6-944-GGUC-NOW. - Diet/Nutrition Diet/Nutrition Orders: No Concentrated Sweets - Activity Activity Orders: Walker - Services Needed Following services are medically necessary services: Physical Therapy, Occupational Therapy - Transfer Medications Prescriptions: Cyanocobalamin (Vitamin B-12) [Vitamin B12] 1,000 mcg PO DAILY 30 Days #30 tablet Home Medications: RX: Albuterol Sulfate [Ventolin Hfa] 2 puff IH Q4H PRN 10/16/17 [History] RX: Finasteride [Proscar] 5 mg PO QPM 10/16/17 [History] RX: Fluticasone Propionate Nasal [Flonase] 100 mcg NS DAILY PRN 10/16/17 [History] RX: Loratadine [Claritin] 10 mg PO DAILY PRN 10/16/17 [History] RX: Albuterol Neb [Proventil Neb] 2.5 mg IH Q6H 30 Days #120 10/19/17 [Rx] Cyanocobalamin (Vitamin B-12) [Vitamin B12] 1,000 mcg PO DAILY 30 Days #30 tablet 10/05/18 [Rx] RX: Aspirin [Lo-Dose Aspirin EC] 81 mg PO DAILY 10/05/18 [History] RX: Budesonide/Formoterol 160/4.5 [Symbicort 160/4.5] 2 puff IH BID 10/05/18 [History] RX: Glimepiride [Amaryl] 4 mg PO DAILY 10/05/18 [History] RX: Metformin HCl 1,000 mg PO BID 10/05/18 [History] RX: Promethazine HCl/Codeine [Promethazine-Codeine Syrup] 5 ml PO Q6H PRN 10/05/18 [History] Allergies/Adverse Reactions: Allergy/AdvReac Type Severity Reaction Status Date / Time tamsulosin [From Flomax] Allergy Hives Verified 10/05/18 08:05 ciprofloxacin [From Cipro] AdvReac Hives Verified 10/05/18 08:05 Penicillins AdvReac Rash Verified 10/05/18 08:05 Certification: Further, I certify that my clinical findings support that this patient is homebound (i.e. absences from home require considerable and taxing effort and are for medical reasons or islam services or infrequently or short duration when for other reasons) because: Homebound Reason: Patient requires assistance of a person or device to safely leave home Attestation: My signature below is to certify that this patient is under my care and that I, or nurse practitioner, or a physician's blacksmith assistant working with me, has a [id number] encounter with this patient. <Paco Salcido - Last Filed: 10/05/18 18:48> - Respiratory Orders Smoking Cessation: Smoking cessation has been advised. For more information, call the [place] Tobacco Quit Line at 6-286-DJDN-NOW. Certification: Further, I certify that my clinical findings support that this patient is homebound (i.e. absences from home require considerable and taxing effort and are for medical reasons or islam services or infrequently or short duration when for other reasons) because: Attestation: My signature below is to certify that this patient is under my care and that I, or nurse practitioner, or a physician's blacksmith assistant working with me, has a [id number] encounter with this patient. I examined this patient and my medical decision-making was reviewed with the Resident Physician. I agree with the documented findings, disposition and treatment plan as described except to the extent set forth below.
== END 2018-10-05 19:00 | disposition home health service (06) ==
LOC: EMEROOARM 13:13 → 3BNU 13:13
PROVIDERS: ADMIT Internal Medicine; ATTEND Internal Medicine